=== PATIENT | female | born 1945 | race Caucasian/White ===

== ENCOUNTER 2017-11-11 12:50 | Emergency (ER) | payer OTHER ==
[2017-11-11 12:58] VITALS: BP 145/86; PULSE 86; TEMP 98.6; BMI 28.3
--- NOTE | 2017-11-11 15:08 | PDOC ---
History of Present Illness - General Chief Complaint: Rash Stated Complaint: SHINGLES / ABSCESS BOIL Time Seen by Provider: 11/11/17 14:54 History Source: Patient, Family (daughter) Exam Limitations: Language Barrier - History of Present Illness Initial Comments: 11/11/17 15:03 72 yr female history of DM, HTN, high cholesterol presents with rash to the right flank started 5 days ago. no fever. pt recently arrived yesterday from Timing/Duration: reports: constant Severity: Yes: moderate Past History - Travel Traveled outside of the country in the last 30 days: Yes - Past Medical History Allergies/Adverse Reactions: Allergies Allergy/AdvReac Type Severity Reaction Status Date / Time Penicillins Allergy Unknown Verified 11/11/17 12:52 Home Medications: Ambulatory Orders Aspirin [ASA -] 81 mg PO DAILY 11/30/12 Lisinopril/Hydrochlorothiazide [Lisinopril-Hctz 20-25 mg Tab] 1 each PO DAILY Metformin HCl [Glucophage] 1,000 mg PO BID 11/30/12 Metoprolol Tartrate [Lopressor -] 100 mg PO BID 11/30/12 Pravastatin Sodium [Pravachol -] 40 mg PO HS 11/30/12 Amlodipine Besylate [Norvasc -] 10 mg PO DAILY #0 tablet 12/04/13 Ibuprofen [Motrin -] 400 mg PO Q6H PRN #18 tablet 09/14/16 Oxycodone HCl/Acetaminophen [Percocet 5-325 mg Tablet] 1 tab PO Q6H PRN #10 tablet MDD 4 11/11/17 COPD: No Diabetes: Yes HTN: Yes Hypercholesterolemia: Yes - Immunization History Immunization Up to Date: Yes - Suicide/Smoking/Psychosocial Hx Smoking Status: No Smoking History: Never smoked Have you smoked in the past 12 months: No Number of Cigarettes Smoked Daily: 0 Information on smoking cessation initiated: No Hx Alcohol Use: No Drug/Substance Use Hx: No Substance Use Type: None Review of Systems - Review of Systems Able to Perform ROS?: Yes Is the patient limited Albanian proficient: No Constitutional: No: Symptoms Reported HEENTM: No: Symptoms Reported Respiratory: No: Symptoms reported Cardiac (ROS): No: Symptoms Reported ABD/GI: No: Symptoms Reported : No: Symptoms Reported Musculoskeletal: No: Symptoms Reported Integumentary: Yes: See HPI *Physical Exam - Vital Signs Last Vital Signs Temp Pulse Resp BP Pulse Ox 98.6 F 86 18 145/86 100 11/11/17 12:55 11/11/17 12:55 11/11/17 12:55 11/11/17 12:55 11/11/17 12:55 - Physical Exam General Appearance: Yes: Nourished, Appropriately Dressed HEENT: positive: EOMI, JANN Neck: positive: Supple Respiratory/Chest: positive: Lungs Clear, Normal Breath Sounds Cardiovascular: positive: Regular Rhythm, Regular Rate Musculoskeletal: positive: Normal Inspection Extremity: positive: Normal Capillary Refill Integumentary: positive: Rash (right flank with erythematous vesicular rash radiates to right side back ) Neurologic: positive: Fully Oriented, Alert, Normal Mood/Affect, Normal Response , Motor Strength /5 Medical Decision Making - Medical Decision Making 11/11/17 15:08 cc: rash painful for 5 days no fever no chills exam consistent with shingles rash out of antiviral timeframe of 72 hours will prescribe pain medicine discussed with daughter who agrees with the plan of care *DC/Admit/Observation/Transfer Diagnosis at time of Disposition: shingles - Discharge Dispostion Disposition: HOME Condition at time of disposition: Good - Prescriptions Prescriptions: Oxycodone HCl/Acetaminophen [Percocet 5-325 mg Tablet] 1 tab PO Q6H PRN #10 tablet MDD 4 PRN Reason: Severe Pain - Referrals Referrals: ON STAFF,NOT [Primary Care Provider] - - Patient Instructions Printed Discharge Instructions: DI for Shingles Additional Instructions: cool compresses to the rash can help with pain apply a topical oatmeal paste you can make this with [employer] products or oatmeal drying cream sold over the counter by [employer] take the percocet for SEVERE pain to sleep during the day take motrin 600mg every 6-8hrs for pain follow with your primary care doctor in 1-3 days for further evaluation - Post Discharge Activity
== END 2017-11-11 15:35 | disposition home or self-care (01) ==
LOC: JERFT 12:50
DX: B02.9 Zoster without complications (principal)
CPT/HCPCS: 99281-25

== ENCOUNTER 2018-03-06 08:57 | Emergency (ER) | payer OTHER ==
[2018-03-06 09:04] VITALS: BP 118/70; PULSE 68; TEMP 97.9; BMI 25.7
--- NOTE | 2018-03-06 09:29 | PDOC ---
History of Present Illness - General Chief Complaint: Edema Stated Complaint: FALL/ FEET PAIN Time Seen by Provider: 03/06/18 09:13 History Source: Patient Exam Limitations: No Limitations - History of Present Illness Initial Comments: 03/06/18 09:29 73y F hx of dm, htn, hl, presents with complaint of leg pain. The pt was cleaning the floor about 1.5 weeks ago, slipped on detergent she put on joann floor, twisted her L ankle and then struck her R leg on the refrigerator. The patient was ambulatory afterwards but noticed increased darkening of her R foot. The pt notes pain to the L ankle and dorsal foot and to the proximal R lower leg just proximal to the anlke. The pt denies hitting her head, cp, sob, fever/chills, cough, neck pain, back pain, abd pain, hip pain, knee pain. Pt taking tylenol with moderate releif. Past History - Past Medical History Allergies/Adverse Reactions: Allergies Allergy/AdvReac Type Severity Reaction Status Date / Time Penicillins Allergy Unknown Verified 03/06/18 08:59 Home Medications: Ambulatory Orders Aspirin [ASA -] 81 mg PO DAILY 11/30/12 Lisinopril/Hydrochlorothiazide [Lisinopril-Hctz 20-25 mg Tab] 1 each PO DAILY Metoprolol Tartrate [Lopressor -] 100 mg PO BID 11/30/12 Pravastatin Sodium [Pravachol -] 40 mg PO HS 11/30/12 metFORMIN HCL [Glucophage] 1,000 mg PO BID 11/30/12 Amlodipine Besylate [Norvasc -] 10 mg PO DAILY #0 tablet 12/04/13 Ibuprofen [Motrin -] 400 mg PO Q6H PRN #18 tablet 09/14/16 Oxycodone HCl/Acetaminophen [Percocet 5-325 mg Tablet] 1 tab PO Q6H PRN #10 tablet MDD 4 11/11/17 COPD: No Diabetes: Yes HTN: Yes Hypercholesterolemia: Yes - Immunization History Immunization Up to Date: Yes - Suicide/Smoking/Psychosocial Hx Smoking Status: No Smoking History: Never smoked Have you smoked in the past 12 months: No Number of Cigarettes Smoked Daily: 0 Hx Alcohol Use: No Drug/Substance Use Hx: No Substance Use Type: None Review of Systems - Review of Systems Able to Perform ROS?: Yes Comments:: 03/06/18 09:39 Constitutional - no reported Fever, Chills, HEENT: no reported vision changes, sore throat Respiratory: no reported cough, sob, hemoptysis Cardiac: no reported chest pain, palpitations, light headedness Abd/GI: no reported abd pain, nausea, vomiting, diarrhea : no reported dysuria, frequency, discharge Musculskelatal - +leg pain, leg swelling no reported back pain, joint swelling skin - no reported bruising, erythema, rash neurological: no reported headache, numbness, focal weakness, tingling, ataxia, hematologic: no reported easy bruising, easy bleeding *Physical Exam - Vital Signs Last Vital Signs Temp Pulse Resp BP Pulse Ox 97.9 F 68 19 118/70 98 03/06/18 08:59 03/06/18 08:59 03/06/18 08:59 03/06/18 08:59 03/06/18 08:59 - Physical Exam Comments: 03/06/18 09:40 GENERAL: The patient is awake, alert, and fully oriented, Nontoxic - in no acute distress. HEAD: Normocephalic, atraumatic. EYES: extraocular movements intact, sclera anicteric, conjunctiva clear. ENT: Normal voice, Moist mucous membranes. NECK: Normal range of motion, supple LUNGS: Breath sounds equal, clear to auscultation bilaterally. No wheezes, no rhonchi, no rales. HEART: Regular rate and rhythm, normal S1 and S2 without murmur, rub or gallop. ABDOMEN: Soft, nontender, normoactive bowel sounds. No guarding, no rebound. . No CVA tenderness EXTREMITIES: Normal ROM of arms/legs at each joint - RLE:mild edema/induration w /o warmth of the distal anterior llower leg, no fcalf tenderness neg homans sign , +ecchymosis w/o tenderness on the medial aspect of foot, L ankle: mild tenderness and edema on lateral malleolos and dorsum of the foot NEUROLOGICAL: No facial assymetry, Normal speech, PSYCH: Normal mood, normal affect. SKIN: Warm, Dry, normal turgor, ED Treatment Course - RADIOLOGY Radiology Studies Ordered: Category Date Time Status ANKLE & FOOT-LEFT* [RAD] Stat Radiology 05/24/18 09:24 Ordered LEG TIB/FIB-LEFT [RAD] Stat Radiology 03/06/18 09:24 Ordered Medical Decision Making - Medical Decision Making 03/06/18 09:41 suspect L ankle sprain, unlikely fx as pt ahs leandra ambulating around the past week, but will get an xray as pt is still sypmtomatic R leg edema/ecchymosis, suspect resolving hematoma on R foot that drained into her R foot pt took motrin this morning,d eclines for now PMD: dr. Gould 03/06/18 11:03 xray negative for fracture will dc pt with supportive care I discussed the physical exam findings, ancillary test results and final diagnoses with the patient. I answered all of the patient's questions. The patient was satisfied with the care received and felt comfortable with the discharge plan and treatment plan. The patient will call their primary care physician within 24 hours to arrange follow-up and will return to the Emergency Department with any new, persistent or worsening symptoms. *DC/Admit/Observation/Transfer Diagnosis at time of Disposition: Ankle sprain Qualifiers: Encounter type: initial encounter Involved ligament of ankle: unspecified ligament Laterality: left Qualified Code(s): S93.402A - Sprain of unspecified ligament of left ankle, initial encounter Hematoma of leg Qualifiers: Encounter type: initial encounter Laterality: right Qualified Code(s): S80.11XA - Contusion of right lower leg, initial encounter - Discharge Dispostion Disposition: HOME Condition at time of disposition: Stable Decision to Admit order: No - Referrals Referrals: Vijay Gould [Other] - Patient Instructions Printed Discharge Instructions: DI for Ankle Sprain Additional Instructions: Return to the emergency department immediately with ANY new, persistent or worsening symptoms including any worsening pain. Take tylenol as needed for any pain. Keep your leg elevated to minimze the swelling. You MUST call and follow up with your doctor tomorrow for further evaluation of your symptoms. Results were discussed with you. Please make sure your doctor reviews the results of your emergency evaluation. If you had any xrays during your visit, it was read preliminarily by myself, a Radiologist will review it and if there are any additional findings we will call you. - Post Discharge Activity
== END 2018-03-06 11:10 | disposition home or self-care (01) ==
LOC: JER 08:57
DX: S93.402A Sprain of unspecified ligament of left ankle, initial encounter (principal); S80.11XA Contusion of right lower leg, initial encounter; W01.0XXA Fall on same level from slipping, tripping and stumbling without subsequent striking against object, initial encounter; Y93.E5 Activity, floor mopping and cleaning; Y92.038 Other place in apartment as the place of occurrence of the external cause; Y99.8 Other external cause status; I10 Essential (primary) hypertension; E78.00 Pure hypercholesterolemia, unspecified; E11.9 Type 2 diabetes mellitus without complications; Z79.84 Long term (current) use of oral hypoglycemic drugs
CPT/HCPCS: 73590-TC-RT-FY; 73610-TC-LT-FY; 73630-TC-LT; 99284-25

== ENCOUNTER 2018-05-12 11:40 | Emergency (ER) | payer OTHER ==
[2018-05-12 12:09] VITALS: BMI 26.9
--- NOTE | 2018-05-12 13:41 | PDOC ---
History of Present Illness - General Chief Complaint: Injury Stated Complaint: FALL, INJURY - History of Present Illness Initial Comments: The patient is a 73F with a history of HTN and T2DM who presents for left eye and forehead swelling and bruising s/p fall from bed on Saturday at approximately 0100 while sleeping. She noted some swelling an pain Saturday but noticed bruising today so her daughter brought her for evaluation. She denies any associated symptoms or complaints since the fall including dizziness, vision change, chest pain, SOB, abdominal pain, or other areas of injury/ bruising. The daughter reports that she has noticed that since the fall the patient has been more quiet but otherwise is as her baseline for mentation and function. The daughter also reports that he patient has been having some forgetfullness over the last months-year but is able to perform her ADLs with minimal assistance. The patient lives with her daughter who helps her manage her medications and both deny any recent change or missed dosages. The patient reports feeling safe at home with her daughter when asked using the parts interpreter while the daughter was not present. 05/12/18 14:14 Past History - Past Medical History Allergies/Adverse Reactions: Allergies Allergy/AdvReac Type Severity Reaction Status Date / Time Penicillins Allergy Unknown Verified 03/06/18 08:59 Home Medications: Ambulatory Orders Aspirin [ASA -] 81 mg PO DAILY 11/30/12 Lisinopril/Hydrochlorothiazide [Lisinopril-Hctz 20-25 mg Tab] 1 each PO DAILY Metoprolol Tartrate [Lopressor -] 100 mg PO BID 11/30/12 Pravastatin Sodium [Pravachol -] 40 mg PO HS 11/30/12 metFORMIN HCL [Glucophage] 1,000 mg PO BID 11/30/12 Amlodipine Besylate [Norvasc -] 10 mg PO DAILY #0 tablet 12/04/13 Ibuprofen [Motrin -] 400 mg PO Q6H PRN #18 tablet 09/14/16 Oxycodone HCl/Acetaminophen [Percocet 5-325 mg Tablet] 1 tab PO Q6H PRN #10 tablet MDD 4 11/11/17 Acetaminophen [Tylenol] 975 mg PO QID PRN 10 Days #120 tablet 05/12/18 Cancer: No Cardiac Disorders: No CVA: No COPD: No DVT: No Diabetes: Yes (NIDDM) HTN: Yes Hypercholesterolemia: Yes Other medical history: Glaucoma - Immunization History Immunization Up to Date: Yes - Suicide/Smoking/Psychosocial Hx Smoking Status: No Smoking History: Never smoked Have you smoked in the past 12 months: No Number of Cigarettes Smoked Daily: 0 Hx Alcohol Use: No Drug/Substance Use Hx: No Substance Use Type: None Review of Systems - Review of Systems Comments:: GENERAL/CONSTITUTIONAL: No fever or chills. No weakness._ HEAD, EYES, EARS, NOSE AND THROAT: No change in vision. No ear pain or discharge. No sore throat._ CARDIOVASCULAR: No chest pain or shortness of breath_ RESPIRATORY: No cough, wheezing, or hemoptysis._ GASTROINTESTINAL: No nausea, vomiting, diarrhea or constipation._ GENITOURINARY: No dysuria, frequency, or change in urination._ MUSCULOSKELETAL: No joint or muscle swelling or pain. No neck or back pain._ SKIN: No rash_ NEUROLOGIC: No headache, vertigo, loss of consciousness, or change in strength/ sensation._ ENDOCRINE: No increased thirst. No abnormal weight change_ HEMATOLOGIC/LYMPHATIC: No anemia, easy bleeding, or history of blood clots._ ALLERGIC/IMMUNOLOGIC: No hives or skin allergy._ 05/12/18 16:46 *Physical Exam - Vital Signs Last Vital Signs Temp Pulse Resp BP Pulse Ox 98 F 75 20 125/77 97 05/12/18 12:02 05/12/18 12:02 05/12/18 12:02 05/12/18 12:05/12/18 12:02 - Physical Exam Comments: GENERAL: Awake, alert, and fully oriented, in no acute distress HEAD: 2cm hematoma over L forehead; Left periorbital ecchymosis and swelling; no Nolan sign, no SQ crepitus EYES: PERRLA, EOMI and painless, sclera anicteric, conjunctiva clear, arcus ENT:Hearing grossly normal, nares patent, oropharynx clear without exudates. Moist mucosa NECK: Normal ROM, supple, no lymphadenopathy, no MSK TTP or midline TTP LUNGS: No distress, speaks full sentences, clear to auscultation bilaterally HEART: Regular rate and rhythm, normal S1 and S2, no murmurs appreciated, peripheral pulses normal and equal bilaterally ABDOMEN: Soft, nontender, non-distended, normoactive bowel sounds. No guarding , no rebound EXTREMITIES : 1cm bruise over left medial elbow with minimal TTP, no joint laxity or SQ crepitus, Normal range of motion, no edema. No clubbing or cyanosis NEUROLOGICAL: Cranial nerves II through XII grossly intact. Normal speech, normal gait, no focal sensorimotor deficits SKIN: Eccymosis over L forehead and L periorbital area as above, otherwise warm , Dry, normal turgor 05/12/18 14:54 ED Treatment Course - LABORATORY CBC & Chemistry Diagram: 05/12/18 14:27 05/12/18 14:27 Medical Decision Making - Medical Decision Making The patient is a 73F with a history of HTN and T2DM who presents for left eye and forehead swelling and bruising s/p fall from bed on Saturday at approximately 0100 while sleeping. Ddx: ED course: CMP, CBC, UA, ECG, CT Head and face w/o 05/12/18 15:13 CBC, UA without evidence of infection CT Head/Face negative for acute bleed or fracture Patient denies pain at this time and is ambulating well, VSS Dispo: Home with daughter and PCP f/u in 1-3 days The patient understands and agrees with the plan of care as outlined above and that questions have been answered to his apparent satisfaction. The patient was instructed to follow up with their primary care physician, was given return precautions, and voiced understanding. 05/12/18 16:35 *DC/Admit/Observation/Transfer Diagnosis at time of Disposition: Fall from bed, initial encounter - Discharge Dispostion Disposition: HOME Condition at time of disposition: Stable Decision to Admit order: No - Prescriptions Prescriptions: Acetaminophen [Tylenol] 975 mg PO QID PRN 10 Days #120 tablet PRN Reason: Pain - Referrals Referrals: Brennan Gould [Other] - Patient Instructions Printed Discharge Instructions: How to Prevent Falls Additional Instructions: You were seen today in the Emergency Department for left eye/forehead swelling and bruising after falling out of bed. You were evaluated and found not to have any acute head bleed or fracture. You were prescribed Tylenol for pain, please take as directed. Also, refer to the handouts provided at discharge about how to decrease the risk of falls in the future. Follow up with your primary care provider within the next 1-3 days. Return to the Emergency Department if you begin to experience headaches, nausea/vomiting, lethargy, vision changes, fevers , any worsening symptoms, or any new concerning symptoms. Hoy se lo sood visto en el Departamento de Emergencia por rekha y jerrod en el ovidio yusuf / la frente despus de haberse cado de la cama. Usted fue evaluado y se descubri que no elizabeth ningn sangrado o fractura aguda en la jesus alberto. Le recetaron Tylenol para el dolor, por favor tome segn las indicaciones. Adems, consulte los folletos proporcionados al momento del tad sobre student counsellor reducir el riesgo de cadas en el futuro. Bennie un seguimiento con peralta proveedor de atencin primaria dentro de los prximos 1-3 barton. Regrese al Departamento de Emergencia si comienza a experimentar yobany de jesus alberto, nuseas / vmitos, letargo, cambios en la visin, fiebre, cualquier empeoramiento de los sntomas o cualquier nuevo sntoma preocupante. Print Language: YAKUT - Post Discharge Activity
--- NOTE | 2018-05-12 14:34 | PDOC ---
Attending Attestation - Resident Resident Name: Dixon Esqueda - ED Attending Attestation I have performed the following: I have examined & evaluated the patient, The case was reviewed & discussed with the resident, I agree w/resident's findings & plan, Exceptions are as noted - HPI HPI: 05/12/18 14:34 73y F hx of htn, dm, fell out of bed while sleeping on saturday and rolled out of bed. Hda some swelling of her forehead immediately afterwards, but this morning noticed some bruising around some came to the ED for evaluation. Pt denies any headache, n/v, viiso changes, numbness/tingling/weakness, neck pain, back pain, chest pain, abd pain, not on a/c Lives with daugther. On exam the pt has a small ecchymotic hematoma on the L forehead that is mildly tender no crepitus noted or stepoffis no tenderness in the periorbital area no focal bony tenderness elswhere on the neck/back normal ROM of all extremitieis will obtain CT head/facial bones to ro fx suspect the ecchymosis is likely due to her hematoma - Medical Decision Making 05/12/18 16:[address] negativ will dc with pmd fu return precautions were dsicussed
[2018-05-12 14:39] LABS: HEMATOCRIT 40.6 % (32.4-45.2); HEMOGLOBIN 13.8 GM/dL (10.7-15.3); MCH 31.4 pg (25.7-33.7); MEAN CELL VOLUME 92.3 fl (80-96); MEAN PLT VOLUME 9.9 fl (7.5-11.1); PLATELET COUNT 232 K/MM3 (134-434); RDW 12.6 % (11.6-15.6); WHITE BLOOD COUNT 11.9 K/mm3 (4.0-10.0)
[2018-05-12 14:46] LABS: URINE APPEARANCE CLEAR; URINE BILIRUBIN NEGATIVE (<2.0 mg/dL); URINE COLOR LTYELLOW; URINE GLUCOSE (UA) NEGATIVE (NEGATIVE); URINE KETONE NEGATIVE (NEGATIVE); URINE LEUK ESTERASE TRACE (NEGATIVE); URINE NITRITE NEGATIVE (NEGATIVE); URINE PROTEIN NEGATIVE (NEGATIVE); URINE UROBILINOGEN NEGATIVE mg/dL (0.2-1.0)
[2018-05-12 14:52] LABS: CALCIUM 9.8 mg/dL (8.5-10.1); CHLORIDE 105 mmol/L (98-107); SODIUM 143 mmol/L (136-145)
[2018-05-12 14:52] LABS: EPI CELLS RARE /HPF (FEW)
[2018-05-12 14:53] LABS: POTASSIUM 4.5 mmol/L (3.5-5.1)
[2018-05-12 14:56] LABS: ANION GAP 7 (8-16); BLOOD UREA NITROGEN 19 mg/dL (7-18); CO2 31 mmol/L (21-32); CREATININE 0.9 mg/dL (0.55-1.02); GLUCOSE,RANDOM 77 mg/dL (74-106)
[2018-05-12 17:16] VITALS: BP 112/72; PULSE 80; TEMP 98.1
--- NOTE | 2018-05-13 17:04 | EKG ---
Test Reason : Blood Pressure : / mmHG Vent. Rate : 069 BPM Atrial Rate : 069 BPM P-R Int : 156 ms QRS Dur : 076 ms QT Int : 394 ms P-R-T Axes : 006 001 015 degrees QTc Int : 422 ms NORMAL SINUS RHYTHM NONSPECIFIC T WAVE ABNORMALITY NORMAL ECG Confirmed by MD JILLIAN, CLOVER ([id number]) on 05/13/2018 5:03:43 PM Referred By: Confirmed By:CLOVER WALSH MD
== END 2018-05-12 17:20 | disposition home or self-care (01) ==
LOC: JER 11:40
DX: S00.83XA Contusion of other part of head, initial encounter (principal); S05.12XA Contusion of eyeball and orbital tissues, left eye, initial encounter; W06.XXXA Fall from bed, initial encounter; Y93.89 Activity, other specified; Y92.032 Bedroom in apartment as the place of occurrence of the external cause; Y99.8 Other external cause status; I10 Essential (primary) hypertension; E11.9 Type 2 diabetes mellitus without complications; Z79.84 Long term (current) use of oral hypoglycemic drugs; E78.00 Pure hypercholesterolemia, unspecified
CPT/HCPCS: 36415; 70450-TC; 70486-TC; 80048; 81003; 81015; 85027; 93005; 93010; 99282-25

== ENCOUNTER 2018-06-19 17:49 | Inpatient (IN) | payer OTHER ==
--- NOTE | 2018-06-19 18:00 | PDOC ---
Rapid Medical Evaluation Time Seen by Provider: 06/19/18 17:55 Medical Evaluation: Allergies Allergy/AdvReac Type Severity Reaction Status Date / Time Penicillins Allergy Unknown Verified 06/19/18 17:53 06/19/18 17:55 I have performed a brief in-person evaluation of this patient. The patient presents with a chief complaint of: change in mentation and gait. A per daughter, patient is noted dragging right leg, complaining of left sided headache and nonsense speech at times since yesterday Pertinent physical exam findings are: NAd even and unlabored breathing no drooping of face, moving all limbs I have ordered the following: cmp, cbc, pt ptt, iv access, ekg, head ct The patient will proceed o the Ed for further evaluation.
[2018-06-19 19:49] LABS: URINE APPEARANCE CLEAR; URINE BILIRUBIN NEGATIVE (<2.0 mg/dL); URINE COLOR STRAW; URINE GLUCOSE (UA) NEGATIVE (NEGATIVE); URINE KETONE NEGATIVE (NEGATIVE); URINE NITRITE NEGATIVE (NEGATIVE); URINE PROTEIN NEGATIVE (NEGATIVE); URINE UROBILINOGEN NEGATIVE mg/dL (0.2-1.0)
[2018-06-19 19:50] LABS: BASO % 0.5 % (0-2.0); HEMATOCRIT 40.6 % (32.4-45.2); HEMOGLOBIN 13.7 GM/dL (10.7-15.3); LYMPH % 24.6 % (8-40); MCH 31.1 pg (25.7-33.7); MCHC 33.7 g/dl (32.0-36.0); MEAN CELL VOLUME 92.3 fl (80-96); MEAN PLT VOLUME 9.3 fl (7.5-11.1); MONO % 8.8 % (3.8-10.2); NEUT % 64.1 % (42.8-82.8); PLATELET COUNT 287 K/MM3 (134-434); RDW 12.9 % (11.6-15.6); WHITE BLOOD COUNT 11.4 K/mm3 (4.0-10.0)
[2018-06-19 19:56] LABS: URINE LEUK ESTERASE 1+ (NEGATIVE)
[2018-06-19 20:11] LABS: INR 0.99 (0.83-1.09); PROTHROMBIN TIME (PATIENT) 11.2 SEC (9.7-13.0)
[2018-06-19 20:14] LABS: ACTIVATED PTT 31.3 SECONDS (25.2-36.5)
[2018-06-19 20:22] LABS: ALBUMIN 3.9 g/dl (3.4-5.0); ANION GAP 13 MMOL/L (8-16); BILIRUBIN,TOTAL 0.3 mg/dL (0.2-1.0); BLOOD UREA NITROGEN 18 mg/dL (7-18); CALCIUM 9.4 mg/dL (8.5-10.1); CHLORIDE 104 mmol/L (98-107); CO2 24 mmol/L (21-32); GLUCOSE,RANDOM 116 mg/dL (74-106); POTASSIUM 4.1 mmol/L (3.5-5.1); SGOT/AST 40 U/L (15-37); SGPT/ALT 28 U/L (12-78); SODIUM 141 mmol/L (136-145); TOT PROT 7.8 g/dl (6.4-8.2)
[2018-06-19 20:24] LABS: ALK PHOS 61 U/L (45-117)
[2018-06-19 20:40] LABS: EPI CELLS RARE /HPF (FEW); URINE MUCUS RARE
--- NOTE | 2018-06-19 20:55 | PDOC ---
History of Present Illness - General Chief Complaint: Altered Mental Status Stated Complaint: EVALUATION Time Seen by Provider: 06/19/18 17:55 History Source: Family (daughter) Exam Limitations: Language Barrier - History of Present Illness Initial Comments: 06/19/18 20:50 Pt is Maltese speaking only. Daughter translated. Pt is a 73yo f with PMH of DM, HTN brought to ED by daughter for slurring of speech, gait abnormalities and going off topic. Daughter picked pt up at 12: 30pm today and noticed that pt was "looking weird." Daughter's boyfriend noticed it too. According to daughter, pt was struggling to get words out and "she sounded like she had a cold on the phone yesterday". Pt lives alone and denies that anything is wrong. Pt just says she has this L sided headache that has been going on a month but it doesn't really bother her. PMH: htn, dm PSH: totaly hysterectomy, lumpectomy Meds: see med rec Allergies: pcn Social: denies PCP: Dr. Vijay Gould Past History - Past Medical History Allergies/Adverse Reactions: Allergies Allergy/AdvReac Type Severity Reaction Status Date / Time Penicillins Allergy Unknown Verified 06/19/18 17:53 Home Medications: Ambulatory Orders Aspirin [ASA -] 81 mg PO DAILY 11/30/12 Lisinopril/Hydrochlorothiazide [Lisinopril-Hctz 20-25 mg Tab] 1 each PO DAILY Metoprolol Tartrate [Lopressor -] 100 mg PO BID 11/30/12 Pravastatin Sodium [Pravachol -] 40 mg PO HS 11/30/12 metFORMIN HCL [Glucophage] 1,000 mg PO BID 11/30/12 Amlodipine Besylate [Norvasc -] 10 mg PO DAILY #0 tablet 12/04/13 Acetaminophen [Tylenol] 975 mg PO QID PRN 10 Days #120 tablet 05/12/18 Cancer: No Cardiac Disorders: No CVA: No COPD: No DVT: No Diabetes: Yes (NIDDM) HTN: Yes Hypercholesterolemia: Yes - Immunization History Immunization Up to Date: Yes - Suicide/Smoking/Psychosocial Hx Smoking Status: No Smoking History: Never smoked Have you smoked in the past 12 months: No Number of Cigarettes Smoked Daily: 0 Information on smoking cessation initiated: No Hx Alcohol Use: No Drug/Substance Use Hx: No Substance Use Type: None Review of Systems - Review of Systems Constitutional: No: Chills, Fever HEENTM: No: Recent change in vision, Double Vision, Ear Pain, Nose Congestion, Throat Pain Respiratory: No: Cough, Shortness of Breath Cardiac (ROS): No: Chest Pain, Lightheadedness, Syncope ABD/GI: No: Constipated, Diarrhea, Nausea, Vomiting, Abdominal cramping : No: Burning, Dysuria Musculoskeletal: No: Back Pain, Joint Pain, Muscle Pain, Muscle Weakness Neurological: Yes: Headache (L sided). No: Numbness, Tingling *Physical Exam - Vital Signs Last Vital Signs Temp Pulse Resp BP Pulse Ox 98 F 75 16 145/80 100 06/19/18 17:57 06/19/18 17:57 06/19/18 17:57 06/19/18 17:57 06/19/18 19:51 - Physical Exam HEENT: positive: EOMI, JANN, Pharynx Normal. negative: Pale Conjunctivae, Scleral Icterus (R), Scleral Icterus (L), Pharyngeal Erythema, Tonsillar Exudate , Nasal Congestion, Sinus Tenderness Neck: positive: Trachea midline, Supple. negative: Carotid bruit, Lymphadenopathy (R), Lymphadenopathy (L) Respiratory/Chest: positive: Lungs Clear, Normal Breath Sounds. negative: Crackles, Rales, Rhonchi, Stridor Cardiovascular: positive: Regular Rhythm, Regular Rate, S1, S2, Systolic Murmur (holosystolic). negative: Edema, JVD Vascular Pulses: Carotid (R): 2+, Carotid (L): 2+, Dorsalis-Pedis (R): 2+, Doralis-Pedis (L): 2+ Gastrointestinal/Abdominal: positive: Normal Bowel Sounds, Soft. negative: Distended, Guarding, Rebound, Tenderness Musculoskeletal: positive: Other (no pelvic/hip tenderness. Full passive ROM with hip and knee. ). negative: CVA Tenderness Extremity: positive: Normal Capillary Refill Integumentary: positive: Normal Color, Dry, Warm. 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 ). negative: Fully Oriented (oriented to self. ), Facial Droop, Numbness, Sensory Deficit, Confused Deep Tendon Reflexes: Ankle (L): 2+, Ankle (R): 2+, Knee (L): 2+, Knee (R): 2+, Bicep (L): 2+, Bicep (R): 2+ ED Treatment Course - LABORATORY CBC & Chemistry Diagram: 06/19/18 19:40 06/19/18 19:40 - ADDITIONAL ORDERS Additional order review: Laboratory Results 06/19/18 06/19/18 06/19/18 19:40 19:40 19:40 PT with INR 11.20 INR 0.99 PTT (Actin FS) 31.3 Sodium 141 Potassium 4.1 Chloride 104 Carbon Dioxide 24 Anion Gap 13 BUN 18 Creatinine 1.0 Creat Clearance w eGFR 54.05 Random Glucose 116 H Calcium 9.4 Total Bilirubin 0.3 AST 40 H ALT 28 Alkaline Phosphatase 61 Troponin I < 0.02 Total Protein 7.8 Albumin 3.9 Urine Color Straw Urine Appearance Clear Urine pH 7.0 Ur Specific [place] 1.004 Urine Protein Negative Urine Glucose (UA) Negative Urine Ketones Negative Urine Blood Negative Urine Nitrite Negative Urine Bilirubin Negative Urine Urobilinogen Negative Ur Leukocyte Esterase 1+ H 06/19/18 19:40 RBC 4.40 MCV 92.3 MCHC 33.7 RDW 12.9 MPV 9.3 Neutrophils % 64.1 Lymphocytes % 24.6 Monocytes % 8.8 Eosinophils % 2.0 Basophils % 0.5 Medical Decision Making - Medical Decision Making 06/20/18 06:47 Pt is a 73yo f with PMH of DM, HTN brought to ED by daughter for slurring of speech, gait abnormalities and going off topic. DDx: hypoglycemia, UTI, sepsis, stroke Labs, CXR and CT ordered in triage. CT showed subdural hematoma in R frontoparietal region that may have been developing since last CT on 05/12 when patient hit her head. All other labs wnl. EKG: nsr, no ALEXSANDRA or depressions. CXR: no acute pathology -Consulted Dr. Craven and will admit pt intpatient to hospitalist. Pt hemodynamically stable. 06/20/18 06:49 *DC/Admit/Observation/Transfer Diagnosis at time of Disposition: Subdural hematoma - Discharge Dispostion Condition at time of disposition: Stable Decision to Admit order: Yes - Referrals - Patient Instructions - Post Discharge Activity
--- NOTE | 2018-06-19 21:03 | PDOC ---
Attending Attestation - Resident Resident Name: Sa Nellieira - ED Attending Attestation I have performed the following: I have examined & evaluated the patient, The case was reviewed & discussed with the resident, I agree w/resident's findings & plan, Exceptions are as noted - HPI HPI: 06/19/18 21:36 73yo female with slurred speech since yesterday and off balance today when walking - leaning to the R when ambulating. Pt fell a month ago. - Physicial Exam PE: 06/19/18 21:37 Gen: aaox3, mildly slurred speech on exam per the daughter heent: PERRL, EOMI, post pharynx clear neck: supple, no midline ttp heart: +s1s2 reg lungs: cta b/l abd: soft, nt/nd +bs ext: no c/c/e neuro: cn ii-xii grossly intact, muslce strength 5/5 ue and le, ambulates with unsteady gait requiring assistance and leans to the right, slurred speech, sensation intact - Critical Care Time Total Critical Care Time: 35 Critical Care Statement: The care of this patient involved high complexity decision making to prevent further life threatening deterioration of the patient 's condition and/or to evaluate & treat vital organ system(s) failure or risk of failure. - Medical Decision Making 06/19/18 21:03 I, Dr. Cee Valero, DO, attest that this document has been prepared under my direction and personally reviewed by me in its entirety. I further attest, that it accurately reflects all work, treatment, procedures and medical decision -making performed by me. 06/19/18 21:42 a/p: 73yo female with fall 1 month ago and slurred speech since yesterday -will send for head ct -pt outside the window for TPA -slurred speech and unsteady gait on exam -will send labs, ua -will monitor and reassess 06/19/18 21:43 pt with SDH on ct case discussed with Dr. Cummins who will see the paitent in consult keep NPO for poss drainage tomorrow 06/19/18 21:43 pt also with a UTI will start abx microblog sent to [facility] 06/19/18 21:46 family updated on the results Heart Score/ECG Review - ECG Intrepretation Comment:: 06/19/18 21:47 sinus at 69, nl axis, nl interval, t wave inversions III, no acute st changes NIH Stroke Scale - Last Known Well Date/Time & Onset Date Last Known Well: 06/18/18 Time Last Known Well: 12:00 - Initial Evaluation Level of consciousness: Alert Ask patient the month and their age: Answers both correctly Ask patient to open & close eyes; make fist and let go: Obeys both correctly Best gaze (horizontal eye movement): Normal Visual field testing: No visual field loss Facial paresis (Show teeth/raise eyebrows/close eyes tight): Normal symmetrical movement Motor Function: Left Arm: Normal Motor Function: Right Arm: Normal (extends arm 90 (or 45) degrees for 10 seconds without drift Motor Function: Left Leg: Normal (extends leg 30 degrees for 5 seconds without drift) Motor Function: Right Leg: Normal (extends leg 30 degrees for 5 seconds without drift) (walks with an ataxic gait towards R side) Limb Ataxia: Present in one limb Sensory(Use pinprick test arms,legs,trunk,face/side to side): Normal Best language (Describe picture, name items, read sentences): No Aphasia Dysarthria (read several words): Mild to moderate slurring of words Extinction and Inattention: No abnormality - Total Score NIH Stroke Scale Score: 2 tPA Exclusion checklist 3-4.5h - Time Elapsed Date last known well: 06/18/18 Time last known well: 12:00 Elaspsed time: 1 Day(s) and 9 Hour(s) and 48 Minutes - Thrombolytic Therapy Candidate Is patient eligible for thrombolytic therapy: No - Ineligibility reason(s) Reasons No tPA given: Outside of window - delayed arrival, See reason(s) noted above (SDH on ct)
[2018-06-19] MEDS ORDERED: CIPROFLOXACIN 200 MG/D5W 100 ML IVPB ONE (21:37)
--- NOTE | 2018-06-19 23:21 | HP ---
CHIEF COMPLAINT: ? change in gait and speech after falling 1 month ago PCP: HISTORY OF PRESENT ILLNESS: 73 y/o female with PMH of DM, HTN, HLD was brought into the ED by her daughter after she has noticed a change in her mother's speech and gait in the past day or so. Patient had a fall at the end of April for which she sustained two hematomas around her eyes, head CT did not show any acute pathology at the time. Since then, she has been complaining of a left sided headache but has not taken anything for the headache. Patients daughter states that since the fall her mother has not been the same- she thinks her mother's speech has changed in addition to how she walks- she notices that her mother cant put all of her weight down on her left foot. At baseline, daughter states that her mother has been getting a little but more forgetful and gets slightly disoriented at times. Patient is denying any headaches- however, daughter states that mother complains daily of headaches. She denies any CP/SOB/N/V. ER course was notable for: (1) Head CT: development of an extra-fluid collection within R frontoparietal region consistent with subdural hematoma with mild degree of mass effect; no midline shift (2) WBC 11.4 (3)U/A 1 + leukocyte esterase; patient given cipro Recent Travel: none PAST MEDICAL HISTORY: see above PAST SURGICAL HISTORY: hysterectomy; lumpectomy Social History: Smoking: denies Alcohol:denies Drugs: denies Family History: Allergies Penicillins Allergy (Unknown, Verified 06/19/18 17:53) HOME MEDICATIONS: Home Medications Medication Instructions Recorded Aspirin [ASA -] 81 mg PO DAILY 11/30/12 Lisinopril/Hydrochlorothiazide 1 each PO DAILY 11/30/12 [Lisinopril-Hctz 20-25 mg Tab] Metoprolol Tartrate [Lopressor -] 100 mg PO BID 11/30/12 Pravastatin Sodium [Pravachol -] 40 mg PO HS 11/30/12 metFORMIN HCL [Glucophage] 1,000 mg PO BID 11/30/12 Amlodipine Besylate [Norvasc -] 10 mg PO DAILY #0 tablet 12/04/13 Acetaminophen [Tylenol] 975 mg PO QID PRN 10 Days #120 05/12/18 tablet REVIEW OF SYSTEMS CONSTITUTIONAL: Absent: fever, chills, diaphoresis, generalized weakness, malaise, loss of appetite, weight change HEENT: Absent: rhinorrhea, nasal congestion, throat pain, throat swelling, difficulty swallowing, mouth swelling, ear pain, eye pain, visual changes CARDIOVASCULAR: Absent: chest pain, syncope, palpitations, irregular heart rate, lightheadedness , peripheral edema RESPIRATORY: Absent: cough, shortness of breath, dyspnea with exertion, orthopnea, wheezing, stridor, hemoptysis GASTROINTESTINAL: Absent: abdominal pain, abdominal distension, nausea, vomiting, diarrhea, constipation, melena, hematochezia GENITOURINARY: Absent: dysuria, frequency, urgency, hesitancy, hematuria, flank pain, genital pain MUSCULOSKELETAL: Absent: myalgia, arthralgia, joint swelling, back pain, neck pain SKIN: Absent: rash, itching, pallor HEMATOLOGIC/IMMUNOLOGIC: Absent: easy bleeding, easy bruising, lymphadenopathy, frequent infections ENDOCRINE: Absent: unexplained weight gain, unexplained weight loss, heat intolerance, cold intolerance NEUROLOGIC: Present: headache, unsteady gait, Absent: focal weakness or paresthesias, dizziness,, seizure, mental status changes, bladder or bowel incontinence PSYCHIATRIC: Absent: anxiety, depression, suicidal or homicidal ideation, hallucinations. PHYSICAL EXAMINATION Vital Signs - 24 hr 06/19/18 06/19/18 06/19/18 17:57 19:51 20:00 Temperature 98 F Pulse Rate 75 Respiratory 16 Rate Blood Pressure 145/80 O2 Sat by Pulse 100 100 100 Oximetry (%) GENERAL: Awake, alert, and fully oriented, in no acute distress. HEAD: Normal with no signs of trauma. EYES: Pupils equal, round and reactive to light, extraocular movements intact, sclera anicteric, conjunctiva clear. No lid lag.. NECK: no JVD seen. LUNGS:CTA B/L; no rales, rhonchi, wheezing HEART: Regular rate and rhythm, normal S1 and S2 without murmur, rub or gallop. ABDOMEN: Soft, nontender, not distended, normoactive bowel sounds, no guarding, no rebound, no masses. No hepatomegaly or splenomegaly. MUSCULOSKELETAL: Normal range of motion at all joints. No bony deformities or tenderness. No CVA tenderness. EXTREMITIES: warm; well-perfused, no clubbing/cyanosis or edema NEUROLOGICAL: Cranial nerves II-XII intact. Normal speech. Normal gait. no facial droop, no sensory deficits, 5/5 strength in upper and lower extremities + deep tendon reflexes: + patellar, + biceps, + triceps, + brachioradialis PSYCHIATRIC: Cooperative. Good eye contact. Appropriate mood and affect. SKIN: Warm, dry, normal turgor, no rashes or lesions noted, normal capillary refill. Laboratory Results - last 24 hr 06/19/18 06/19/18 06/19/18 19:40 19:40 19:40 WBC 11.4 H RBC 4.40 Hgb 13.7 Hct 40.6 MCV 92.3 MCH 31.1 MCHC 33.7 RDW 12.9 Plt Count 287 D MPV 9.3 Absolute Neuts (auto) 7.3 Neutrophils % 64.1 Lymphocytes % 24.6 Monocytes % 8.8 Eosinophils % 2.0 Basophils % 0.5 Nucleated RBC % 0 PT with INR 11.20 INR 0.99 PTT (Actin FS) 31.3 Sodium Potassium Chloride Carbon Dioxide Anion Gap BUN Creatinine Creat Clearance w eGFR Random Glucose Calcium Total Bilirubin AST ALT Alkaline Phosphatase Troponin I Total Protein Albumin Urine Color Straw Urine Appearance Clear Urine pH 7.0 Ur Specific [place] 1.004 Urine Protein Negative Urine Glucose (UA) Negative Urine Ketones Negative Urine Blood Negative Urine Nitrite Negative Urine Bilirubin Negative Urine Urobilinogen Negative Ur Leukocyte Esterase 1+ H Urine WBC (Auto) 11 Urine RBC (Auto) <1 Ur Epithelial Cells Rare Urine Mucus Rare 06/19/18 19:40 WBC RBC Hgb Hct MCV MCH MCHC RDW Plt Count MPV Absolute Neuts (auto) Neutrophils % Lymphocytes % Monocytes % Eosinophils % Basophils % Nucleated RBC % PT with INR INR PTT (Actin FS) Sodium 141 Potassium 4.1 Chloride 104 Carbon Dioxide 24 Anion Gap 13 BUN 18 Creatinine 1.0 Creat Clearance w eGFR 54.05 Random Glucose 116 H Calcium 9.4 Total Bilirubin 0.3 AST 40 H ALT 28 Alkaline Phosphatase 61 Troponin I < 0.02 Total Protein 7.8 Albumin 3.9 Urine Color Urine Appearance Urine pH Ur Specific [place] Urine Protein Urine Glucose (UA) Urine Ketones Urine Blood Urine Nitrite Urine Bilirubin Urine Urobilinogen Ur Leukocyte Esterase Urine WBC (Auto) Urine RBC (Auto) Ur Epithelial Cells Urine Mucus ASSESSMENT/PLAN: 73 y/o female with PMH DM, HTN, HLD who was brought to the ED by her daughter after she was noticed to have changes in speech and gait since having a fall 1 month ago, and is now found to have subdural hematoma on CT scan. #Subdural Hematoma -neurosurgery has been consulted -patient is NPO after midnight for possible drainage procedure tomorrow with Dr. Murray -neuro checks q4H -telemetry monitoring -hold all anticoagulation and DVT prophylaxis #HTN - c/w home meds -hold ASA 81 for now #HLD -c/w pravastatin #Diabetes -start patient on ISS F/E/N not on standing fluids replete electrolytes when necessary NPO after midnight for possible procedure tomorrow dispo: monitor in telemetry Visit type - Emergency Visit Emergency Visit: Yes ED Registration Date: 06/19/18 Care time: The patient presented to the Emergency Department on the above date and was hospitalized for further evaluation of their emergent condition. - New Patient This patient is new to me today: Yes Date on this admission: 06/20/18 - Critical Care Critical Care patient: No Hospitalist Screening - Colonoscopy Questionnaire Colonoscopy Questionnaire: Colonoscopy Questionnaire - Patient: 50 - 75 years old and never had a screening colonoscopy: Unknown History of colon or rectal polyps, or CA: Unknown History of IBD, Crohn's disease or UC: Unknown History of abdominal radiation therapy as a child: Unknown - Relative: 1 with colon or rectal CA, or polyps at age 60 or younger: Unknown Colon or rectal CA diagnosed at age 45 or younger: Unknown Multiple relatives with colon or rectal CA: Unknown - Outcome: Screening Result: Negative Screen
[2018-06-20] MEDS ORDERED: BUPIVACAINE HCL/PF (5 MG/ML) 30 ML VIAL IJ ONE
--- NOTE | 2018-06-20 02:17 | PN ---
Teaching Attending Note Name of Resident: Indira Craig ATTENDING PHYSICIAN STATEMENT I saw and evaluated the patient. Chart, data, imaging reviewed. I reviewed the resident's note and discussed the case with the resident. I agree with the resident's findings and plan as documented. SUBJECTIVE: 73 y/o female with PMH of DM, HTN, HLD was brought into the ED by her daughter after she has noticed a change in her mother's speech and gait in the past day or so. Patient had a fall at the end of April, head CT did not show any acute intracranial pathology at the time. For the past several days, pt c/o of left sided headache, however here in ED she did not have any complaints. OBJECTIVE: Last Vital Signs Temp Pulse Resp BP Pulse Ox 98 F 75 16 145/80 100 06/19/18 17:57 06/19/18 17:57 06/19/18 17:57 06/19/18 17:57 06/19/18 20:00 physical exam remarkable for systolic murmur. Neuro exam wnl, CN intact. Full motor strength in all extremities Abnormal Lab Results 06/19/18 06/19/18 06/19/18 19:40 19:40 19:40 WBC 11.4 H Random Glucose 116 H AST 40 H Ur Leukocyte Esterase 1+ H Head CT reviewed- appears to be be left sided subdural hematoma, pending official read ASSESSMENT AND PLAN: 73yo woman with left sided subdural hematoma. Currently asymptomatic. Dr. Monaco of neurosurgery was consulted and recommended close observation and removal of hematoma in AM with craniotomy. -telemetry -neuro checks q4hrs -avoid ASA and other antiplatelet agents -avoid heparin -bed rest -fall precautions -official neurosurgery consult -SCDs for DVT ppx
[2018-06-20] MEDS: INSULIN SLIDING SCALE (NOVOLOG) 1 VIAL SQ SCH ×4 (07:01→21:27)
[2018-06-20 07:03] LABS: BASO % 0.4 % (0-2.0); EOS % 2.2 % (0-4.5); HEMOGLOBIN 12.7 GM/dL (10.7-15.3); LYMPH % 28.1 % (8-40); MCH 30.7 pg (25.7-33.7); MCHC 33.5 g/dl (32.0-36.0); MEAN CELL VOLUME 91.9 fl (80-96); MEAN PLT VOLUME 9.7 fl (7.5-11.1); MONO % 10.1 % (3.8-10.2); NEUT % 59.2 % (42.8-82.8); PLATELET COUNT 258 K/MM3 (134-434); RBC 4.13 M/mm3 (3.60-5.2); RDW 12.7 % (11.6-15.6); WHITE BLOOD COUNT 10.2 K/mm3 (4.0-10.0)
[2018-06-20 07:34] LABS: ALBUMIN 3.5 g/dl (3.4-5.0); ANION GAP 8 MMOL/L (8-16); BLOOD UREA NITROGEN 15 mg/dL (7-18); CALCIUM 8.7 mg/dL (8.5-10.1); CHLORIDE 102 mmol/L (98-107); CO2 29 mmol/L (21-32); GLUCOSE,RANDOM 129 mg/dL (74-106); MAGNESIUM 1.6 mg/dL (1.8-2.4); POTASSIUM 3.7 mmol/L (3.5-5.1); SODIUM 139 mmol/L (136-145)
[2018-06-20 07:38] LABS: ALK PHOS 51 U/L (45-117); BILIRUBIN,TOTAL 0.7 mg/dL (0.2-1.0); CREATININE 0.8 mg/dL (0.55-1.02); PHOSPHOROUS 3.4 mg/dL (2.5-4.9); SGOT/AST 34 U/L (15-37); SGPT/ALT 24 U/L (12-78); TOT PROT 7.2 g/dl (6.4-8.2)
--- NOTE | 2018-06-20 09:12 | EKG ---
Test Reason : Blood Pressure : / mmHG Vent. Rate : 069 BPM Atrial Rate : 069 BPM P-R Int : 162 ms QRS Dur : 070 ms QT Int : 384 ms P-R-T Axes : 008 -07 011 degrees QTc Int : 411 ms NORMAL SINUS RHYTHM WHEN COMPARED WITH ECG OF 12-MAY-2018 14:23, NO SIGNIFICANT CHANGE WAS FOUND Confirmed by JOSE BAZAN MD ([id number]) on 06/20/2018 9:12:27 AM Referred By: Confirmed By:JOSE BAZAN MD
--- NOTE | 2018-06-20 09:27 | CONSULT ---
Consult - text type - Consultation Consultation Note: NEUROSURGERY CONSULTATION Malia Aranda is a 73 year old Latin female who fell one month ago and struck the Left side of her head. She has mild persisting Left orbital echymoses. CT Head from April 2018 did not reveal any intracranial pathology consistent with trauma. The patient presented to the [facility] ER last evening with a history of progressive headaches, slurred speech and gait instability manifesting as falling and leaning to the Right. Head CT demonstrates a Left frontal subacute subdural hematoma which is at least 1.5cm in thickness. There is effacement of the sulci and mass effect on the brain. I discussed this finding with the patient and daughter in detail and we reviewed the imaging together. The risks, benefits and alternatives to Left frontal craniotomy and evacuation of the subdural hematoma were discussed in detail. The risks included, but were not limited to: , coma, paralysis, bleeding, infection, CSF leak possibly requiring additional surgery and the need to address recurrent subdural hematoma. I offered them the option of seeking another opinion or another surgeon. All questions were answered. Informed consent was obtained. The patient and daughter ask that I proceed with surgery as described.
[2018-06-20] MEDS ORDERED: HYDROCHLOROTHIAZIDE 25 MG TABLET (FP) PO SCH (10:00)
[2018-06-20] MEDS ORDERED: METOPROLOL TARTRATE 50 MG TABLET (FP) PO SCH (10:00)
[2018-06-20] MEDS ORDERED: PATIENT'S OWN MEDICATION (NON-FORMULARY) (Lisinopril/Hydrochlorothiazide [Lisinopril-Hctz PO SCH (10:00)
[2018-06-20] MEDS ORDERED: LISINOPRIL 20 MG TABLET (FP) PO SCH (10:00)
[2018-06-20] MEDS ORDERED: amLODIPine BESYLATE 10 MG TABLET (FP) PO SCH (10:00)
[2018-06-20] MEDS ORDERED: PROPOFOL 20 ML ONE (11:29)
[2018-06-20] MEDS ORDERED: LIDOCAINE HCL/PF 2% SDV 5ML VIAL ONE (11:30)
[2018-06-20] MEDS ORDERED: ROCURONIUM BROMIDE 50 MG/5 ML VIAL ONE ×2 (11:31→12:54)
[2018-06-20] MEDS ORDERED: BUPIVACAINE HCL/PF 0.5% (5MG/ML) 10 ML VIAL ONE (11:39)
[2018-06-20] MEDS ORDERED: THROMBIN (BOVINE) 20,000 UNIT VIAL TP ONE (11:39)
[2018-06-20] MEDS ORDERED: LIDOCAINE 1%/EPI 1:100000 (20 ML MULTI DOSE VIAL) ONE (11:39)
[2018-06-20] MEDS ORDERED: GENTAMICIN SO4 80 MG/2 ML VIAL ONE (11:39)
--- NOTE | 2018-06-20 11:40 | ECHO ---
Name: TONY MUJICA Exam:Adult Echocardiogram Study Date: 06/20/2018 10:56 AM Age: 73 yrs Reason For Study: [facility] [place] Height: 60 in Weight: 137 lb BSA: 1.6 m2 MMode/2D Measurements & Calculations IVSd: 0.94 cm Ao root diam: 2.6 cm LVIDd: 3.7 cm LA dimension: 2.3 cm LVIDs: 2.7 cm LVPWd: 0.88 cm EDV(Teich): 58.9 ml LAV (MOD-bp): 34.6 ml ESV(Teich): 27.1 ml Doppler Measurements & Calculations MV E max ramirez: 63.1 cm/sec MV A max ramirez: 111.1 cm/sec MV dec slope: 144.7 cm/sec2 MV E/A: 0.57 MR max ramirez: 356.7 cm/sec TR max ramirez: 220.6 cm/sec MR max P.1 mmHg TR max P.5 mmHg Med Peak E' Ramirez: 4.9 cm/sec PI Vmax: 146.6 cm/sec Med E/e': 12.9 Lat Peak E' Ramirez: 8.2 cm/sec Lat E/e': 7.7 Left Ventricle Left ventricular systolic function is normal. Ejection Fraction = 55-60%. The transmitral spectral Do ppler flow pattern is suggestive of impaired LV relaxation. Right Ventricle The right ventricle is normal in size and function. Atria The left atrium is mildly dilated. Mitral Valve The mitral valve is normal in structure and function. There is no mitral valve stenosis. There is tra ce to mild mitral regurgitation. Tricuspid Valve The tricuspid valve is not well visualized, but is grossly normal. There is mild tricuspid regurgitat ion. Right ventricular systolic pressure is normal. Aortic Valve The aortic valve is trileaflet. No hemodynamically significant valvular aortic stenosis. No aortic regurgitation is present. Pulmonic Valve The pulmonic valve is not well visualized. There is no pulmonic valvular stenosis. Trace to mild pulm onic valvular regurgitation. Great Vessels The aortic root is normal size. Pericardium/Pleura There is no pericardial effusion. Interpretation Summary Left ventricular systolic function is normal. Ejection Fraction = 55-60%. The transmitral spectral Doppler flow pattern is suggestive of impaired LV relaxation. The left atrium is mildly dilated. There is trace to mild mitral regurgitation. There is mild tricuspid regurgitation. Right ventricular systolic pressure is normal. The aortic root is normal size. There is no pericardial effusion. MD Tiburcio Trammell 06/20/2018 11:40 AM
--- NOTE | 2018-06-20 12:23 | PN ---
Teaching Attending Note Name of Resident: Prashant Arias ATTENDING PHYSICIAN STATEMENT I saw and evaluated the patient. I reviewed the resident's note and discussed the case with the resident. I agree with the resident's findings and plan as documented. SUBJECTIVE: No fever or chills, No BHANDARI , NO weakness , numbness or tingling. per daughter speech was noted to be slurred, and shuffling in her R leg. OBJECTIVE: NAD Awake, alert and cooperative. HEENT: minimal asymmetry of the nasal folds ( effacement in R sided nasal fold ) . MMM CV: RRR, 3/6 SM at base, louder in apex and with radiation to L axilla. Lungs: CTAB . Ext : no edema Neuro : EOMI, round equal pupils , reactive to light . mild effacement in R nasolabial fold , tongue at mid line. strenght 5/ 5inupper and lower extremities proximally anad distally. sensation to light touch is nL. reflexes : 2+ knee jerk b/l. 2+ R biceps. Unable to get L biceps ( pt not relaxed ) ASSESSMENT AND PLAN: 73 y/o lady with h/o HTN, DM, HLP, recent fall on 05/12 who presented with slurred speech and abnormal gait and was found to have L sided SDH. 1- L SDH : CT image reviewed. - hold asa and heparin product - for oR today . - this patient has no active ACS, arrhythmias, or signs of CHF. EKG reviewed. Echo showed mild MR. this surgery is an intermediate risk procedure. overall, this patient is at low risk for vimal-op cardiac complications for this intermediate risk procedure. no further test are needed before surgery . 2- HTn: cont home meds 3- DM: SSI 4- DVT PX : SCDs. d/w Dr. welsh
[2018-06-20] MEDS ORDERED: LIDOCAINE 1%/EPI 1:100000 (50 ML MULTI DOSE VIAL) INF ONE (12:55)
[2018-06-20] MEDS ORDERED: VANCOMYCIN 1,000 MG VIAL (RESTRICTED TO ID ONLY) ONE (12:55)
[2018-06-20] MEDS ORDERED: SODIUM CHLORIDE 0.9% P/F 10 ML VIAL IJ ONE (12:55)
[2018-06-20] MEDS ORDERED: VANCOMYCIN 1,000 MG VIAL (RESTRICTED TO ID ONLY) IVPB ONE (12:55)
[2018-06-20] MEDS ORDERED: DEXAMETHASONE SOD PHOSPHATE 4 MG/1 ML VIAL ONE (13:13)
[2018-06-20] MEDS ORDERED: ONDANSETRON 4 MG/2 ML VIAL ONE (13:13)
[2018-06-20] MEDS ORDERED: GLYCOPYRROLATE 0.2 MG/1 ML VIAL ONE (13:21)
[2018-06-20] MEDS ORDERED: NEOSTIGMINE METHYLSULFATE 0.5 MG/ML - 10 ML MDV ONE (13:21)
[2018-06-20] MEDS ORDERED: ePHEDrine SULFATE 50 MG/1 ML AMPULE ONE (13:25)
--- NOTE | 2018-06-20 14:02 | PN ---
Physical Exam: SUBJECTIVE: Patient seen and examined at bedside. Denies any complaints. Agrees to neurosurgery. OBJECTIVE: Vital Signs Period Temp Pulse Resp BP Sys/[place] Pulse Ox Last 24 Hr 97.8 F-98.3 F 66-76 14-19 123-150/66-89 95-100 GENERAL: A&Ox3, NAD, psychomotor retardation present (unknown if baseline) HEAD: scant periorbital ecchymoses EYES: PERRLA, EOMI ENT: Ears normal, nares patent, oropharynx clear without exudates, moist mucous membranes. NECK: Trachea midline, full range of motion, supple. LUNGS: Breath sounds equal, clear to auscultation bilaterally, no wheezes, no crackles, no accessory muscle use. HEART: RRR ABDOMEN: Soft, nontender, nondistended, normoactive bowel sounds, no guarding, no rebound, no hepatosplenomegaly, no masses. EXTREMITIES: 2+ pulses, warm, well-perfused, no edema. NEUROLOGICAL: CN II-XII intact b/l, 5/5 strength in proximal and distal extremities x 4, sensorium intact, FtN intact, HtS intact, 2+ biceps and patellar reflexes b/l PSYCH: Normal mood, normal affect. SKIN: Warm, dry, normal turgor, no rashes or lesions noted Laboratory Results - last 24 hr 06/19/18 06/19/18 06/19/18 19:40 19:40 19:40 WBC 11.4 H RBC 4.40 Hgb 13.7 Hct 40.6 MCV 92.3 MCH 31.1 MCHC 33.7 RDW 12.9 Plt Count 287 D MPV 9.3 Absolute Neuts (auto) 7.3 Neutrophils % 64.1 Lymphocytes % 24.6 Monocytes % 8.8 Eosinophils % 2.0 Basophils % 0.5 Nucleated RBC % 0 PT with INR 11.20 INR 0.99 PTT (Actin FS) 31.3 Sodium Potassium Chloride Carbon Dioxide Anion Gap BUN Creatinine Creat Clearance w eGFR POC Glucometer Random Glucose Calcium Phosphorus Magnesium Total Bilirubin AST ALT Alkaline Phosphatase Troponin I Total Protein Albumin Urine Color Straw Urine Appearance Clear Urine pH 7.0 Ur Specific [place] 1.004 Urine Protein Negative Urine Glucose (UA) Negative Urine Ketones Negative Urine Blood Negative Urine Nitrite Negative Urine Bilirubin Negative Urine Urobilinogen Negative Ur Leukocyte Esterase 1+ H Urine WBC (Auto) 11 Urine RBC (Auto) <1 Ur Epithelial Cells Rare Urine Mucus Rare Anti-A Titer Blood Type Antibody Screen 06/19/18 06/19/18 06/19/18 19:40 22:15 22:15 WBC RBC Hgb Hct MCV MCH MCHC RDW Plt Count MPV Absolute Neuts (auto) Neutrophils % Lymphocytes % Monocytes % Eosinophils % Basophils % Nucleated RBC % PT with INR INR PTT (Actin FS) 34.5 Sodium 141 Potassium 4.1 Chloride 104 Carbon Dioxide 24 Anion Gap 13 BUN 18 Creatinine 1.0 Creat Clearance w eGFR 54.05 POC Glucometer Random Glucose 116 H Calcium 9.4 Phosphorus Magnesium Total Bilirubin 0.3 AST 40 H ALT 28 Alkaline Phosphatase 61 Troponin I < 0.02 Total Protein 7.8 Albumin 3.9 Urine Color Urine Appearance Urine pH Ur Specific [place] Urine Protein Urine Glucose (UA) Urine Ketones Urine Blood Urine Nitrite Urine Bilirubin Urine Urobilinogen Ur Leukocyte Esterase Urine WBC (Auto) Urine RBC (Auto) Ur Epithelial Cells Urine Mucus Anti-A Titer Cancelled Blood Type Cancelled Antibody Screen Cancelled 06/19/18 06/20/18 06/20/18 23:35 06:20 06:20 WBC 10.2 H RBC 4.13 Hgb 12.7 Hct 38.0 MCV 91.9 MCH 30.7 MCHC 33.5 RDW 12.7 Plt Count 258 MPV 9.7 Absolute Neuts (auto) 6.1 Neutrophils % 59.2 Lymphocytes % 28.1 Monocytes % 10.1 Eosinophils % 2.2 Basophils % 0.4 Nucleated RBC % 0 PT with INR INR PTT (Actin FS) Sodium 139 Potassium 3.7 Chloride 102 Carbon Dioxide 29 Anion Gap 8 BUN 15 Creatinine 0.8 Creat Clearance w eGFR > 60 POC Glucometer Random Glucose 129 H Calcium 8.7 Phosphorus 3.4 Magnesium 1.6 L Total Bilirubin 0.7 AST 34 ALT 24 Alkaline Phosphatase 51 D Troponin I Total Protein 7.2 Albumin 3.5 Urine Color Urine Appearance Urine pH Ur Specific [place] Urine Protein Urine Glucose (UA) Urine Ketones Urine Blood Urine Nitrite Urine Bilirubin Urine Urobilinogen Ur Leukocyte Esterase Urine WBC (Auto) Urine RBC (Auto) Ur Epithelial Cells Urine Mucus Anti-A Titer Blood Type O POSITIVE Antibody Screen Negative 06/20/18 06/20/18 06/20/18 06:20 06:55 08:42 WBC RBC Hgb Hct MCV MCH MCHC RDW Plt Count MPV Absolute Neuts (auto) Neutrophils % Lymphocytes % Monocytes % Eosinophils % Basophils % Nucleated RBC % PT with INR INR PTT (Actin FS) Sodium Potassium Chloride Carbon Dioxide Anion Gap BUN Creatinine Creat Clearance w eGFR POC Glucometer 109.70134 147.96896 Random Glucose Calcium Phosphorus Magnesium Total Bilirubin AST ALT Alkaline Phosphatase Troponin I Total Protein Albumin Urine Color Urine Appearance Urine pH Ur Specific [place] Urine Protein Urine Glucose (UA) Urine Ketones Urine Blood Urine Nitrite Urine Bilirubin Urine Urobilinogen Ur Leukocyte Esterase Urine WBC (Auto) Urine RBC (Auto) Ur Epithelial Cells Urine Mucus Anti-A Titer Blood Type O POSITIVE Antibody Screen 06/20/18 11:43 WBC RBC Hgb Hct MCV MCH MCHC RDW Plt Count MPV Absolute Neuts (auto) Neutrophils % Lymphocytes % Monocytes % Eosinophils % Basophils % Nucleated RBC % PT with INR INR PTT (Actin FS) Sodium Potassium Chloride Carbon Dioxide Anion Gap BUN Creatinine Creat Clearance w eGFR POC Glucometer 138.36759 Random Glucose Calcium Phosphorus Magnesium Total Bilirubin AST ALT Alkaline Phosphatase Troponin I Total Protein Albumin Urine Color Urine Appearance Urine pH Ur Specific [place] Urine Protein Urine Glucose (UA) Urine Ketones Urine Blood Urine Nitrite Urine Bilirubin Urine Urobilinogen Ur Leukocyte Esterase Urine WBC (Auto) Urine RBC (Auto) Ur Epithelial Cells Urine Mucus Anti-A Titer Blood Type Antibody Screen Active Medications Generic Name Dose Route Start Last Admin Trade Name Nae PRN Reason Stop Dose Admin Amlodipine Besylate 10 mg 06/20/18 10:00 06/20/18 10:30 Norvasc - PO 10 mg DAILY PATRICA Administration Atorvastatin Calcium 10 mg 06/20/18 22:00 Lipitor - PO HS [facility] Hydrochlorothiazide 25 mg 06/20/18 10:00 06/20/18 10:30 Hctz - PO 25 mg DAILY PATRICA Administration Insulin Aspart 1 vial 06/20/18 07:00 06/20/18 11:45 Novolog Vial Sliding Scale - SQ Not Given ACHS [facility] Protocol Lisinopril 20 mg 06/20/18 10:00 06/20/18 10:31 Prinivil PO 20 mg DAILY PATRICA Administration Metoprolol Tartrate 100 mg 06/20/18 10:00 06/20/18 10:30 Lopressor - PO 100 mg BID PATRICA Administration ASSESSMENT/PLAN: 73 y/o F w/ PMHx DM, HTN, HLD admitted for subacute subdural hematoma 2/2 fall 1 month [employer] #Subdural Hematoma -L frontoparietal subdural hematoma on CT, mild mass effect, no midline shift -pre-Sx echocardiogram benign -craniotomy w/ Dr. Cummins today -post-craniotomy CT shows reduction in size of hematoma, recommends for close f/u -will follow NeuroSx reccs -received ABx in OR, single dose Vancomycin tomorrow -neuro checks q4H -telemetry monitoring -AC and DVT prophylaxis held prior to Sx #HTN -c/w home meds: Lopressor, Lisinopril, HCTZ, Norvasc -hold ASA 81 for now #HLD -on pravastatin at home -Lipitor 10 daily #DM -SSI -BGM ACHS #asymptomatic pyuria -UA: LE 1+, 11 WBC -no complaints of dysuria, hematuria -mental status changes explained by interval development of subdural hematoma -will not treat at this time #FEN -LR @ 73 -wnl -NPO #PPx -DVT -GI: none indicated #Dispo -recovery and monitoring in ICU Visit type - Emergency Visit Emergency Visit: Yes ED Registration Date: 06/19/18 Care time: The patient presented to the Emergency Department on the above date and was hospitalized for further evaluation of their emergent condition. - New Patient This patient is new to me today: Yes Date on this admission: 06/20/18 - Critical Care Critical Care patient: No
[2018-06-20] MEDS ORDERED: ONDANSETRON 4 MG/2 ML VIAL IVPUSH PRN (14:17)
--- NOTE | 2018-06-20 14:17 | OP ---
Operative Note - Note: Operative Date: 06/20/18 Pre-Operative Diagnosis: Left frontoparietal SDH Operation: Left frontoparietal craniotomy, evacuation of SDH Post-Operative Diagnosis: Same as Pre-op Surgeon: Mook Cummins Steam Fitter Supervisor Maintenance: Apollo Henning Anesthesiologist/TELEPHONE SOLICITOR: Tiburcio Saini Anesthesia: General Estimated Blood Loss (mls): 25 Fluid Volume Replaced (mls): 300 Operative Report Dictated: Yes
--- NOTE | 2018-06-20 14:18 | SURG ---
Surgery Tax Form Preparer Note Tax Form Preparer: Apollo Henning PA-C Date of Service: 06/20/18 Diagnosis: Left frontoparietal subdural hematoma Procedure: Left frontoparietal craniotomy with evacuation of subdural hematoma I was present for the entirety of the operative procedure. For further detail, please refer to operative report. Visit type - Case Type Case Type: ED Admission - Emergency Emergency Visit: Yes ED Registration Date: 06/19/18 Care time: The patient presented to the Emergency Department on the above date and was hospitalized for further evaluation of their emergent condition. - New patient This patient is new to me today: Yes Date on this admission: 06/20/18
[2018-06-20] MEDS ORDERED: LACTATED RINGERS SOLUTION 1,000 ML IV SCH (14:30)
[2018-06-20 15:08] LABS: HEMATOCRIT 37.8 % (32.4-45.2); HEMOGLOBIN 12.8 GM/dL (10.7-15.3); MCH 31.2 pg (25.7-33.7); MEAN CELL VOLUME 91.8 fl (80-96); MEAN PLT VOLUME 9.7 fl (7.5-11.1); PLATELET COUNT 268 K/MM3 (134-434); RBC 4.12 M/mm3 (3.60-5.2); WHITE BLOOD COUNT 11.9 K/mm3 (4.0-10.0)
[2018-06-20] MEDS ORDERED: ACETAMINOPHEN INJECTION 100 ML IVPB ONE (15:23)
[2018-06-20] MEDS: ACETAMINOPHEN 1000 MG/100 ML VIAL (NON FORMULARY) IVPB ONE ×2 (15:25→22:15)
[2018-06-20] MEDS ORDERED: PNEUMOC 13-VAL CONJ-DIP CRM/PF 0.5 ML DISP.SYRIN IM ONE (16:44)
--- NOTE | 2018-06-20 17:32 | PN ---
Physical Exam: SUBJECTIVE: Azeri only speaking patient seen and examined. Daughter present to interpret and translate. Pt. laying in bed with family present sitting up smiling. Pt. is hungry and is asking when she can eat. Pt. denies any CP, SOB, weakness, numbness, tingling or fever. OBJECTIVE: Vital Signs Period Temp Pulse Resp BP Sys/[place] Pulse Ox Last 24 Hr 97.8 F-98.7 F 64-76 14-19 117-150/54-89 95-100 GENERAL: The patient is awake, alert, and fully oriented, in no acute distress. HEAD: Wrapped in post-op surgical guaze. EYES: PERRL, extraocular movements intact, sclera anicteric, conjunctiva clear. No ptosis. ENT: Ears normal, nares patent, oropharynx clear without exudates, moist mucous membranes, uvula midline. NECK: Trachea midline, full range of motion. LUNGS: mildly decreased breath sounds, no wheezes, mild bibasilar crackles , no accessory muscle use. HEART: Regular rate and rhythm, S1, S2 without murmur ABDOMEN: Soft, nontender, nondistended, normoactive bowel sounds, no guarding, no rebound, no hepatosplenomegaly, no masses. EXTREMITIES: 2+ dorsal pedal pulses, warm, well-perfused, no edema, no calf tenderness, 5/5 muscle strength in all extremities. Motor and sensation grossly intact. NEUROLOGICAL: Cranial nerves II through XII grossly intact. Normal speech-per daughter, gait not observed. PSYCH: Normal mood, normal affect. SKIN: Warm, dry, normal turgor, n Laboratory Results - last 24 hr 06/19/18 06/19/18 06/19/18 19:40 19:40 19:40 WBC 11.4 H RBC 4.40 Hgb 13.7 Hct 40.6 MCV 92.3 MCH 31.1 MCHC 33.7 RDW 12.9 Plt Count 287 D MPV 9.3 Absolute Neuts (auto) 7.3 Neutrophils % 64.1 Lymphocytes % 24.6 Monocytes % 8.8 Eosinophils % 2.0 Basophils % 0.5 Nucleated RBC % 0 PT with INR 11.20 INR 0.99 PTT (Actin FS) 31.3 Sodium Potassium Chloride Carbon Dioxide Anion Gap BUN Creatinine Creat Clearance w eGFR POC Glucometer Random Glucose Calcium Phosphorus Magnesium Total Bilirubin AST ALT Alkaline Phosphatase Troponin I Total Protein Albumin Urine Color Straw Urine Appearance Clear Urine pH 7.0 Ur Specific [place] 1.004 Urine Protein Negative Urine Glucose (UA) Negative Urine Ketones Negative Urine Blood Negative Urine Nitrite Negative Urine Bilirubin Negative Urine Urobilinogen Negative Ur Leukocyte Esterase 1+ H Urine WBC (Auto) 11 Urine RBC (Auto) <1 Ur Epithelial Cells Rare Urine Mucus Rare Anti-A Titer Blood Type Antibody Screen 06/19/18 06/19/18 06/19/18 19:40 22:15 22:15 WBC RBC Hgb Hct MCV MCH MCHC RDW Plt Count MPV Absolute Neuts (auto) Neutrophils % Lymphocytes % Monocytes % Eosinophils % Basophils % Nucleated RBC % PT with INR INR PTT (Actin FS) 34.5 Sodium 141 Potassium 4.1 Chloride 104 Carbon Dioxide 24 Anion Gap 13 BUN 18 Creatinine 1.0 Creat Clearance w eGFR 54.05 POC Glucometer Random Glucose 116 H Calcium 9.4 Phosphorus Magnesium Total Bilirubin 0.3 AST 40 H ALT 28 Alkaline Phosphatase 61 Troponin I < 0.02 Total Protein 7.8 Albumin 3.9 Urine Color Urine Appearance Urine pH Ur Specific [place] Urine Protein Urine Glucose (UA) Urine Ketones Urine Blood Urine Nitrite Urine Bilirubin Urine Urobilinogen Ur Leukocyte Esterase Urine WBC (Auto) Urine RBC (Auto) Ur Epithelial Cells Urine Mucus Anti-A Titer Cancelled Blood Type Cancelled Antibody Screen Cancelled 06/19/18 06/20/18 06/20/18 23:35 06:20 06:20 WBC 10.2 H RBC 4.13 Hgb 12.7 Hct 38.0 MCV 91.9 MCH 30.7 MCHC 33.5 RDW 12.7 Plt Count 258 MPV 9.7 Absolute Neuts (auto) 6.1 Neutrophils % 59.2 Lymphocytes % 28.1 Monocytes % 10.1 Eosinophils % 2.2 Basophils % 0.4 Nucleated RBC % 0 PT with INR INR PTT (Actin FS) Sodium 139 Potassium 3.7 Chloride 102 Carbon Dioxide 29 Anion Gap 8 BUN 15 Creatinine 0.8 Creat Clearance w eGFR > 60 POC Glucometer Random Glucose 129 H Calcium 8.7 Phosphorus 3.4 Magnesium 1.6 L Total Bilirubin 0.7 AST 34 ALT 24 Alkaline Phosphatase 51 D Troponin I Total Protein 7.2 Albumin 3.5 Urine Color Urine Appearance Urine pH Ur Specific [place] Urine Protein Urine Glucose (UA) Urine Ketones Urine Blood Urine Nitrite Urine Bilirubin Urine Urobilinogen Ur Leukocyte Esterase Urine WBC (Auto) Urine RBC (Auto) Ur Epithelial Cells Urine Mucus Anti-A Titer Blood Type O POSITIVE Antibody Screen Negative 06/20/18 06/20/18 06/20/18 06:20 06:55 08:42 WBC RBC Hgb Hct MCV MCH MCHC RDW Plt Count MPV Absolute Neuts (auto) Neutrophils % Lymphocytes % Monocytes % Eosinophils % Basophils % Nucleated RBC % PT with INR INR PTT (Actin FS) Sodium Potassium Chloride Carbon Dioxide Anion Gap BUN Creatinine Creat Clearance w eGFR POC Glucometer 109.83469 147.19756 Random Glucose Calcium Phosphorus Magnesium Total Bilirubin AST ALT Alkaline Phosphatase Troponin I Total Protein Albumin Urine Color Urine Appearance Urine pH Ur Specific [place] Urine Protein Urine Glucose (UA) Urine Ketones Urine Blood Urine Nitrite Urine Bilirubin Urine Urobilinogen Ur Leukocyte Esterase Urine WBC (Auto) Urine RBC (Auto) Ur Epithelial Cells Urine Mucus Anti-A Titer Blood Type O POSITIVE Antibody Screen 06/20/18 06/20/18 06/20/18 11:43 14:45 17:02 WBC 11.9 H RBC 4.12 Hgb 12.8 Hct 37.8 MCV 91.8 MCH 31.2 MCHC 34.0 RDW 13.0 Plt Count 268 MPV 9.7 Absolute Neuts (auto) Neutrophils % Lymphocytes % Monocytes % Eosinophils % Basophils % Nucleated RBC % PT with INR INR PTT (Actin FS) Sodium Potassium Chloride Carbon Dioxide Anion Gap BUN Creatinine Creat Clearance w eGFR POC Glucometer 138.06369 179.10224 Random Glucose Calcium Phosphorus Magnesium Total Bilirubin AST ALT Alkaline Phosphatase Troponin I Total Protein Albumin Urine Color Urine Appearance Urine pH Ur Specific [place] Urine Protein Urine Glucose (UA) Urine Ketones Urine Blood Urine Nitrite Urine Bilirubin Urine Urobilinogen Ur Leukocyte Esterase Urine WBC (Auto) Urine RBC (Auto) Ur Epithelial Cells Urine Mucus Anti-A Titer Blood Type Antibody Screen Active Medications Current Medications Amlodipine Besylate (Norvasc -) 10 mg PO DAILY [facility] Atorvastatin Calcium (Lipitor -) 10 mg PO HS [facility] Chlorhexidine Gluconate (Hibiclens For Decolonization -) 1 applic TP HS [facility] Fentanyl (Sublimaze Injection -) 25 mcg IVPUSH [id number] PRN PRN Reason: PAIN-PACU ORDER X 4 DOSES ONLY Heparin Sodium (Porcine) (Heparin -) 5,000 unit SQ TID [facility] Hydrochlorothiazide (Hctz -) 25 mg PO DAILY [facility] Vancomycin HCl 1,000 mg/ (Dextrose) 250 mls @ 250 mls/hr IVPB ONCE ONE; Protocol Stop: 06/21/18 02:29 Lactated Ringer's (Lactated Ringers Solution) 1,000 mls @ 75 mls/hr IV ASDIR [facility] Last Admin: 06/20/18 16:48 Dose: Not Given Insulin Aspart (Novolog Vial Sliding Scale -) 1 vial SQ ACHS [facility]; Protocol Last Admin: 06/20/18 17:28 Dose: 2 units Lisinopril (Prinivil) 20 mg PO DAILY [facility] Metoprolol Tartrate (Lopressor -) 100 mg PO BID [facility] Mupirocin (Bactroban Ointment (For Decolonization) -) 1 applic NS BID [facility] Stop: 06/25/18 21:59 Ondansetron HCl (Zofran Injection) 4 mg IVPUSH Q6H PRN PRN Reason: NAUSEA AND/OR VOMITING ASSESSMENT/PLAN: 73 y/o F w/ PMHx DM, HTN, HLD admitted for subacute subdural hematoma 2/2 fall 1 month ago. Pt. is s/p caniotomy for subdural hematoma evacuation. POD #0. #Neurological -S/p craniotomy 2/2 subdural hematoma q4H neurovascular checks Rpt. Head CT shows decreased subdural hematoma size pressing against left temporal lobe without midline shift s/p one dose of Vancomycin c/w Fentanyl 25mcg IVP q5min for pain #Cardiovascular -HTN Echo(06/20/18): EF 55-60%, impaired LV relaxation, LA mildly dilated, mild TR, trace to mild MR, RV pressure is normal c/w HCTZ 25 mg, Lisinopril 20mg, Lopressor 100mg BID, Amlodipine 10 mg -HLD c/w Lipitor 10mg and ASA #Gastroenterology -Nausea/Vomiting c/w Ondansetron PRN #DVT. Ppx. -SCDs -Heparin SQ #F/E/N -NPO except for meds -Lactated Ringer @ 75ml/hr -Replete electrolytes as needed
--- NOTE | 2018-06-20 20:08 | CONSULT ---
Consultation: REQUESTING PROVIDER: Dr. Craven CONSULT REQUEST: We have been asked to medically evaluate this patient for Dr. Craven. HISTORY OF PRESENT ILLNESS: A 73 y.o. Maori-speaking F w/ PMHx. of HTN, DM, HLD presented to the ED by her daughter because of changes to speech and gait that has gotten progressively worse over the past month. Pt. fell 1 month ago and had a CT Head scan which was negative for acute changes. Pt. endorses having a headache on the left side of her head after the incident. Pt. denies any headache at this time. Per the Pt.'s daughter, the Pt. began to develop an abnormal gait favoring the left leg. Before the fall the Pt. was forgetful at times but had a normal gait. Pt. laying in bed with family presents to ICU sitting up smiling. Pt. is hungry and is asking when she can eat. Pt. denies any CP, SOB, numbness or tingling in the extremities, abdominal pain or any complaints. REVIEW OF SYSTEMS: CONSTITUTIONAL: Absent: fever, chills, diaphoresis, generalized weakness, malaise, loss of appetite HEENT: throat pain Absent: throat swelling, difficulty swallowing, mouth swelling, ear pain, eye pain, visual changes CARDIOVASCULAR: Absent: chest pain, syncope, palpitations, irregular heart rate, lightheadedness , peripheral edema RESPIRATORY: Absent: shortness of breath, dyspnea with exertion, wheezing, GASTROINTESTINAL: hunger Absent: abdominal pain, abdominal distension, nausea, vomiting, diarrhea, constipation, NEUROLOGIC: Absent: headache, focal weakness or paresthesias, dizziness, unsteady gait, seizure, mental status changes, bladder or bowel incontinence Physical Exam: OBJECTIVE: Vital Signs Period Temp Pulse Resp BP Sys/Redmond Pulse Ox Last 24 Hr 97.8 F-98.7 F 64-76 14-19 117-150/54-89 95-100 GENERAL: The patient is awake, alert, and fully oriented, in no acute distress. HEAD: Wrapped in post-op surgical guaze. EYES: PERRL, extraocular movements intact, sclera anicteric, conjunctiva clear. No ptosis. ENT: Ears normal, nares patent, oropharynx clear without exudates, moist mucous membranes, uvula midline. NECK: Trachea midline, full range of motion. LUNGS: mildly decreased breath sounds, no wheezes, mild bibasilar crackles , no accessory muscle use. HEART: Regular rate and rhythm, S1, S2 without murmur ABDOMEN: Soft, nontender, nondistended, normoactive bowel sounds, no guarding, no rebound, no hepatosplenomegaly, no masses. EXTREMITIES: 2+ dorsal pedal pulses, warm, well-perfused, no edema, no calf tenderness, 5/5 muscle strength in all extremities. Motor and sensation grossly intact. NEUROLOGICAL: Cranial nerves II through XII grossly intact. Normal speech-per daughter, gait not observed. PSYCH: Normal mood, normal affect. SKIN: Warm, dry, normal turgor, n Laboratory Results - last 24 hr 06/19/18 06/19/18 06/19/18 19:40 19:40 19:40 WBC 11.4 H RBC 4.40 Hgb 13.7 Hct 40.6 MCV 92.3 MCH 31.1 MCHC 33.7 RDW 12.9 Plt Count 287 D MPV 9.3 Absolute Neuts (auto) 7.3 Neutrophils % 64.1 Lymphocytes % 24.6 Monocytes % 8.8 Eosinophils % 2.0 Basophils % 0.5 Nucleated RBC % 0 PT with INR 11.20 INR 0.99 PTT (Actin FS) 31.3 Sodium Potassium Chloride Carbon Dioxide Anion Gap BUN Creatinine Creat Clearance w eGFR POC Glucometer Random Glucose Calcium Phosphorus Magnesium Total Bilirubin AST ALT Alkaline Phosphatase Troponin I Total Protein Albumin Urine Color Straw Urine Appearance Clear Urine pH 7.0 Ur Specific Mchenry 1.004 Urine Protein Negative Urine Glucose (UA) Negative Urine Ketones Negative Urine Blood Negative Urine Nitrite Negative Urine Bilirubin Negative Urine Urobilinogen Negative Ur Leukocyte Esterase 1+ H Urine WBC (Auto) 11 Urine RBC (Auto) <1 Ur Epithelial Cells Rare Urine Mucus Rare Anti-A Titer Blood Type Antibody Screen 06/19/18 06/19/18 06/19/18 19:40 22:15 22:15 WBC RBC Hgb Hct MCV MCH MCHC RDW Plt Count MPV Absolute Neuts (auto) Neutrophils % Lymphocytes % Monocytes % Eosinophils % Basophils % Nucleated RBC % PT with INR INR PTT (Actin FS) 34.5 Sodium 141 Potassium 4.1 Chloride 104 Carbon Dioxide 24 Anion Gap 13 BUN 18 Creatinine 1.0 Creat Clearance w eGFR 54.05 POC Glucometer Random Glucose 116 H Calcium 9.4 Phosphorus Magnesium Total Bilirubin 0.3 AST 40 H ALT 28 Alkaline Phosphatase 61 Troponin I < 0.02 Total Protein 7.8 Albumin 3.9 Urine Color Urine Appearance Urine pH Ur Specific Mchenry Urine Protein Urine Glucose (UA) Urine Ketones Urine Blood Urine Nitrite Urine Bilirubin Urine Urobilinogen Ur Leukocyte Esterase Urine WBC (Auto) Urine RBC (Auto) Ur Epithelial Cells Urine Mucus Anti-A Titer Cancelled Blood Type Cancelled Antibody Screen Cancelled 06/19/18 06/20/18 06/20/18 23:35 06:20 06:20 WBC 10.2 H RBC 4.13 Hgb 12.7 Hct 38.0 MCV 91.9 MCH 30.7 MCHC 33.5 RDW 12.7 Plt Count 258 MPV 9.7 Absolute Neuts (auto) 6.1 Neutrophils % 59.2 Lymphocytes % 28.1 Monocytes % 10.1 Eosinophils % 2.2 Basophils % 0.4 Nucleated RBC % 0 PT with INR INR PTT (Actin FS) Sodium 139 Potassium 3.7 Chloride 102 Carbon Dioxide 29 Anion Gap 8 BUN 15 Creatinine 0.8 Creat Clearance w eGFR > 60 POC Glucometer Random Glucose 129 H Calcium 8.7 Phosphorus 3.4 Magnesium 1.6 L Total Bilirubin 0.7 AST 34 ALT 24 Alkaline Phosphatase 51 D Troponin I Total Protein 7.2 Albumin 3.5 Urine Color Urine Appearance Urine pH Ur Specific Mchenry Urine Protein Urine Glucose (UA) Urine Ketones Urine Blood Urine Nitrite Urine Bilirubin Urine Urobilinogen Ur Leukocyte Esterase Urine WBC (Auto) Urine RBC (Auto) Ur Epithelial Cells Urine Mucus Anti-A Titer Blood Type O POSITIVE Antibody Screen Negative 06/20/18 06/20/18 06/20/18 06:20 06:55 08:42 WBC RBC Hgb Hct MCV MCH MCHC RDW Plt Count MPV Absolute Neuts (auto) Neutrophils % Lymphocytes % Monocytes % Eosinophils % Basophils % Nucleated RBC % PT with INR INR PTT (Actin FS) Sodium Potassium Chloride Carbon Dioxide Anion Gap BUN Creatinine Creat Clearance w eGFR POC Glucometer 109.62055 147.43568 Random Glucose Calcium Phosphorus Magnesium Total Bilirubin AST ALT Alkaline Phosphatase Troponin I Total Protein Albumin Urine Color Urine Appearance Urine pH Ur Specific Mchenry Urine Protein Urine Glucose (UA) Urine Ketones Urine Blood Urine Nitrite Urine Bilirubin Urine Urobilinogen Ur Leukocyte Esterase Urine WBC (Auto) Urine RBC (Auto) Ur Epithelial Cells Urine Mucus Anti-A Titer Blood Type O POSITIVE Antibody Screen 06/20/18 06/20/18 06/20/18 11:43 14:45 17:02 WBC 11.9 H RBC 4.12 Hgb 12.8 Hct 37.8 MCV 91.8 MCH 31.2 MCHC 34.0 RDW 13.0 Plt Count 268 MPV 9.7 Absolute Neuts (auto) Neutrophils % Lymphocytes % Monocytes % Eosinophils % Basophils % Nucleated RBC % PT with INR INR PTT (Actin FS) Sodium Potassium Chloride Carbon Dioxide Anion Gap BUN Creatinine Creat Clearance w eGFR POC Glucometer 138.16295 179.25757 Random Glucose Calcium Phosphorus Magnesium Total Bilirubin AST ALT Alkaline Phosphatase Troponin I Total Protein Albumin Urine Color Urine Appearance Urine pH Ur Specific Mchenry Urine Protein Urine Glucose (UA) Urine Ketones Urine Blood Urine Nitrite Urine Bilirubin Urine Urobilinogen Ur Leukocyte Esterase Urine WBC (Auto) Urine RBC (Auto) Ur Epithelial Cells Urine Mucus Anti-A Titer Blood Type Antibody Screen Active Medications Current Medications Amlodipine Besylate (Norvasc -) 10 mg PO DAILY [facility] Atorvastatin Calcium (Lipitor -) 10 mg PO HS [facility] Chlorhexidine Gluconate (Hibiclens For Decolonization -) 1 applic TP HS [facility] Fentanyl (Sublimaze Injection -) 25 mcg IVPUSH [id number] PRN PRN Reason: PAIN-PACU ORDER X 4 DOSES ONLY Heparin Sodium (Porcine) (Heparin -) 5,000 unit SQ TID [facility] Hydrochlorothiazide (Hctz -) 25 mg PO DAILY [facility] Vancomycin HCl 1,000 mg/ (Dextrose) 250 mls @ 250 mls/hr IVPB ONCE ONE; Protocol Stop: 06/21/18 02:29 Lactated Ringer's (Lactated Ringers Solution) 1,000 mls @ 75 mls/hr IV ASDIR [facility] Last Admin: 06/20/18 16:48 Dose: Not Given Insulin Aspart (Novolog Vial Sliding Scale -) 1 vial SQ [facility]; Protocol Last Admin: 06/20/18 17:28 Dose: 2 units Lisinopril (Prinivil) 20 mg PO DAILY [facility] Metoprolol Tartrate (Lopressor -) 100 mg PO BID [facility] Mupirocin (Bactroban Ointment (For Decolonization) -) 1 applic NS BID [facility] Stop: 06/25/18 21:59 Ondansetron HCl (Zofran Injection) 4 mg IVPUSH Q6H PRN PRN Reason: NAUSEA AND/OR VOMITING ASSESSMENT/PLAN: 73 y/o F w/ PMHx DM, HTN, HLD admitted for subacute subdural hematoma 2/2 fall 1 month ago. Pt. is s/p caniotomy for subdural hematoma evacuation. POD #0. #Neurological -S/p craniotomy 2/2 subdural hematoma q4H neurovascular checks Rpt. Head CT shows decreased subdural hematoma size pressing against left temporal lobe without midline shift s/p one dose of Vancomycin c/w Fentanyl 25mcg IVP q5min for pain max of 4 doses. #Cardiovascular -HTN Echo(06/20/18): EF 55-60%, impaired LV relaxation, LA mildly dilated, mild TR, trace to mild MR, RV pressure is normal c/w HCTZ 25 mg, Lisinopril 20mg, Lopressor 100mg BID, Amlodipine 10 mg -HLD c/w Lipitor 10mg and ASA #Gastroenterology -Nausea/Vomiting c/w Ondansetron PRN #DVT. Ppx. -SCDs -Heparin SQ #F/E/N -NPO except for meds -Lactated Ringer @ 75ml/hr -Replete electrolytes as needed Visit type - Emergency Visit Emergency Visit: Yes ED Registration Date: 06/19/18 Care time: The patient presented to the Emergency Department on the above date and was hospitalized for further evaluation of their emergent condition. - New Patient This patient is new to me today: Yes Date on this admission: 06/20/18 - Critical Care Critical Care patient: No
[2018-06-20] MEDS ORDERED: traMADol HCL 50 MG TABLET PO ONE (20:45)
[2018-06-20] MEDS: HEPARIN NA (PORCINE) 5,000 UNITS/ML 1ML VIAL SQ SCH (21:26)
[2018-06-20] MEDS: METOPROLOL TARTRATE 50 MG TABLET (FP) PO SCH (21:26)
[2018-06-20] MEDS: ATORVASTATIN CA 10 MG TABLET (FP) PO SCH (21:26)
[2018-06-20] MEDS: MUPIROCIN 2% TOPICAL OINTMENT FOR DECOLONIZATION NS SCH (21:26)
[2018-06-20] MEDS: CHLORHEXIDINE GLUCONATE 4% CLEANSER FOR DECOLONIZATION TP SCH (21:27)
[2018-06-20] MEDS ORDERED: ATORVASTATIN CA 10 MG TABLET (FP) PO SCH (22:00)
[2018-06-21] MEDS ORDERED: VANCOMYCIN 1,000 MG in DEXTROSE 5%-WATER - 250 ML IVPB ONE (01:30)
[2018-06-21] MEDS: HEPARIN NA (PORCINE) 5,000 UNITS/ML 1ML VIAL SQ SCH ×3 (06:12→21:08)
[2018-06-21 06:32] LABS: BASO % 0.2 % (0-2.0); HEMATOCRIT 37.9 % (32.4-45.2); HEMOGLOBIN 12.8 GM/dL (10.7-15.3); LYMPH % 8.4 % (8-40); MCH 30.7 pg (25.7-33.7); MCHC 33.8 g/dl (32.0-36.0); MEAN CELL VOLUME 90.7 fl (80-96); MEAN PLT VOLUME 9.9 fl (7.5-11.1); MONO % 5.2 % (3.8-10.2); NEUT % 86.2 % (42.8-82.8); PLATELET COUNT 274 K/MM3 (134-434); RBC 4.18 M/mm3 (3.60-5.2); RDW 12.7 % (11.6-15.6)
[2018-06-21 06:50] LABS: ANION GAP 10 MMOL/L (8-16); BLOOD UREA NITROGEN 12 mg/dL (7-18); CHLORIDE 104 mmol/L (98-107); CO2 27 mmol/L (21-32); GLUCOSE,RANDOM 222 mg/dL (74-106); POTASSIUM 3.9 mmol/L (3.5-5.1); SODIUM 141 mmol/L (136-145)
[2018-06-21 06:51] LABS: CREATININE 0.7 mg/dL (0.55-1.02)
[2018-06-21] MEDS ORDERED: PT OWN MED DRAWER 7, Y5N ONE (09:06)
[2018-06-21] MEDS: METOPROLOL TARTRATE 50 MG TABLET (FP) PO SCH ×2 (09:19→21:07)
[2018-06-21] MEDS: amLODIPine BESYLATE 10 MG TABLET (FP) PO SCH (09:19)
[2018-06-21] MEDS: HYDROCHLOROTHIAZIDE 25 MG TABLET (FP) PO SCH (09:20)
[2018-06-21] MEDS: LISINOPRIL 20 MG TABLET (FP) PO SCH (09:21)
[2018-06-21] MEDS: MUPIROCIN 2% TOPICAL OINTMENT FOR DECOLONIZATION NS SCH ×2 (09:32→21:08)
--- NOTE | 2018-06-21 09:34 | PN ---
Progress Note (short form) - Note Progress Note: Seen and examined in ICU POD 1 from Left frontoparietal subdural hematoma Patient awake, alert and cooperative. Eating breakfast No focal deficits noted BP stable (120-140's) Active Medications Acetaminophen (Tylenol -) 650 mg PO Q6H PRN PRN Reason: FEVER Amlodipine Besylate (Norvasc -) [address] [facility] Last Admin: 06/21/18 09:19 Dose: 10 mg Atorvastatin Calcium (Lipitor -) 10 mg PO [facility] Last Admin: 06/20/18 21:26 Dose: 10 mg Chlorhexidine Gluconate (Hibiclens For Decolonization -) 1 applic TP [facility] Last Admin: 06/20/18 21:27 Dose: 1 applic Fentanyl (Sublimaze Injection -) 25 mcg IVPUSH [id number] PRN PRN Reason: PAIN-PACU ORDER X 4 DOSES ONLY Heparin Sodium (Porcine) (Heparin -) 5,[address] [facility] Last Admin: 06/21/18 06:12 Dose: 5,000 unit Hydrochlorothiazide (Hctz -) [address] [facility] Last Admin: 06/21/18 09:20 Dose: 25 mg Lactated Ringer's (Lactated Ringers Solution) 1,000 mls @ 75 mls/hr IV ASDIR [facility] Last Admin: 06/20/18 16:48 Dose: Not Given Insulin Aspart (Novolog Vial Sliding Scale -) 1 vial SQ [facility]; Protocol Last Admin: 06/20/18 21:27 Dose: 2 units Lisinopril (Prinivil) [address] [facility] Last Admin: 06/21/18 09:21 Dose: 20 mg Metoprolol Tartrate (Lopressor -) [address] [facility] Last Admin: 06/21/18 09:19 Dose: 100 mg Mupirocin (Bactroban Ointment (For Decolonization) -) [address] [facility] Stop: 06/25/18 21:59 Last Admin: 06/20/18 21:26 Dose: 1 applic Ondansetron HCl (Zofran Injection) 4 mg IVPUSH Q6H PRN PRN Reason: NAUSEA AND/OR VOMITING Vital Signs Period Temp Pulse Resp BP Sys/Redmond Pulse Ox Last 24 Hr 97.8 F-98.7 F 63-77 13-18 108-140/54-84 95-100 Intake & Output 06/18/18 06/19/18 06/20/18 06/21/18 23:59 23:59 23:59 23:59 Intake Total 1425 775 Output Total 2250 400 Balance -825 375 Weight 62.142 kg 58.922 kg General: awake, alert and cooperative. Denies BHANDARI/blurry vision/nausea/weakness/ numbness HEENT: PERRL, scalp surgical incision c/d/i Pulm: CTA CV: RRR And: SNTND Ext: WWP no edema Neuro: CN grossly intact, CANNON, AOx3 CBC, BMP 06/21/18 05:30 06/21/18 05:30 All Active Problems Subdural hematoma (Acute) Ankle sprain (Acute) Fall from bed, initial encounter (Acute) Hematoma of leg (Acute) Low back pain (Acute) - Frequent neuro chests with repeat imaging per neurology - cont anti-HTN medication for SBP 120-140's - hold ASA per neurology - advanced diet as tolerated - incentive spirometry - O2 as need for Sat >90% - SCD for DVT prophylaxis - Early PT/OT Boerem ACNP Pulm/CCM CCT: 35m
--- NOTE | 2018-06-21 11:25 | PN ---
Physical Exam: SUBJECTIVE: Patient seen and examined at bedside. Having pain within tolerance at surgical site, otherwise no complaints. Passing flatus. Breathing well. OBJECTIVE: Vital Signs Period Temp Pulse Resp BP Sys/Redmond Pulse Ox Last 24 Hr 97.8 F-98.7 F 63-77 13-18 108-134/54-84 95-100 GENERAL: A&Ox3, NAD HEAD: scant periorbital ecchymoses, surgical dressing left undisturbed EYES: PERRLA, EOMI ENT: Ears normal, nares patent, oropharynx clear without exudates, moist mucous membranes. NECK: Trachea midline, full range of motion, supple. LUNGS: Breath sounds equal, clear to auscultation bilaterally, no wheezes, no crackles, no accessory muscle use. HEART: RRR ABDOMEN: Soft, nontender, nondistended, normoactive bowel sounds, no guarding, no rebound, no hepatosplenomegaly, no masses. EXTREMITIES: 2+ pulses, warm, well-perfused, no edema. NEUROLOGICAL: CN II-XII intact b/l, 5/5 strength in proximal and distal extremities x 4, sensorium intact, FtN intact, HtS intact, 2+ biceps and patellar reflexes b/l PSYCH: Normal mood, normal affect. SKIN: Warm, dry, normal turgor, no rashes or lesions noted Laboratory Results - last 24 hr 06/20/18 06/20/18 06/20/18 11:43 14:45 17:02 WBC 11.9 H RBC 4.12 Hgb 12.8 Hct 37.8 MCV 91.8 MCH 31.2 MCHC 34.0 RDW 13.0 Plt Count 268 MPV 9.7 Absolute Neuts (auto) Neutrophils % Lymphocytes % Monocytes % Eosinophils % Basophils % Nucleated RBC % Sodium Potassium Chloride Carbon Dioxide Anion Gap BUN Creatinine Creat Clearance w eGFR POC Glucometer 138.51704 179.34258 Random Glucose Calcium 06/20/18 06/21/18 06/21/18 20:50 05:30 05:30 WBC 16.0 H RBC 4.18 Hgb 12.8 Hct 37.9 MCV 90.7 MCH 30.7 MCHC 33.8 RDW 12.7 Plt Count 274 MPV 9.9 Absolute Neuts (auto) 13.8 H Neutrophils % 86.2 H D Lymphocytes % 8.4 D Monocytes % 5.2 Eosinophils % 0.0 D Basophils % 0.2 Nucleated RBC % 0 Sodium 141 Potassium 3.9 Chloride 104 Carbon Dioxide 27 Anion Gap 10 BUN 12 Creatinine 0.7 Creat Clearance w eGFR > 60 POC Glucometer 189.20855 Random Glucose 222 H Calcium 9.0 Active Medications Generic Name Dose Route Start Last Admin Trade Name Freq PRN Reason Stop Dose Admin Acetaminophen 650 mg 06/21/18 07:01 Tylenol - PO Q6H PRN FEVER Amlodipine Besylate 10 mg 06/21/18 10:00 06/21/18 09:19 Norvasc - PO 10 mg DAILY [facility] Administration Atorvastatin Calcium 10 mg 06/20/18 22:00 06/20/18 21:26 Lipitor - PO 10 mg HS [facility] Administration Chlorhexidine Gluconate 1 applic 06/20/18 22:00 06/20/18 21:27 Hibiclens For Decolonization - TP 1 applic HS [facility] Administration Fentanyl 25 mcg 06/20/18 14:17 Sublimaze Injection - IVPUSH [id number] PRN PAIN-PACU ORDER X 4 DOSES ONLY Heparin Sodium (Porcine) 5,000 unit 06/20/18 22:00 06/21/18 06:12 Heparin - SQ 5,000 unit TID [facility] Administration Hydrochlorothiazide 25 mg 06/21/18 10:00 06/21/18 09:20 Hctz - PO 25 mg DAILY [facility] Administration Lactated Ringer's 1,000 mls @ 75 mls/hr 06/20/18 14:30 06/20/18 16:48 Lactated Ringers Solution IV Not Given ASDIR [facility] Insulin Aspart 1 vial 06/20/18 16:30 06/20/18 21:27 Novolog Vial Sliding Scale - SQ 2 units ACHS [facility] Administration Protocol Lisinopril 20 mg 06/21/18 10:00 06/21/18 09:21 Prinivil PO 20 mg DAILY [facility] Administration Metoprolol Tartrate 100 mg 06/20/18 22:00 06/21/18 09:19 Lopressor - PO 100 mg BID [facility] Administration Mupirocin 1 applic 06/20/18 22:00 06/21/18 09:32 Bactroban Ointment (For Decolonization) - NS 06/25/18 21:59 1 applic BID [facility] Administration Ondansetron HCl 4 mg 06/20/18 14:17 Zofran Injection IVPUSH Q6H PRN NAUSEA AND/OR VOMITING ASSESSMENT/PLAN: 73 y/o F w/ PMHx DM, HTN, HLD admitted for subacute subdural hematoma 2/2 fall 1 month [employer] #Subdural Hematoma -POD1 s/p L frontal craniotomy w/ Dr. Cummins -post-craniotomy CT shows reduction in size of hematoma, recommends for close f/u -following NeuroSx reccs -received dexamethasone vimal-operatively, elevated WBC and glucose today -neuro checks q4H -telemetry monitoring -BP stable -continue to hold home ASA -SCDs for DVT PPx -started on diabetic diet -incentive spirometry -early PT/OT #HTN -c/w home meds: Lopressor, Lisinopril, HCTZ, Norvasc #HLD -on pravastatin at home -Lipitor 10 daily #DM -SSI -BGM ACHS #asymptomatic pyuria -UA: LE 1+, 11 WBC -no complaints of dysuria, hematuria -mental status changes explained by interval development of subdural hematoma -will not treat at this time #FEN -LR @ 73 -wnl -diabetic #PPx -DVT: SCDs -GI: none indicated #Dispo -recovery and monitoring in ICU Visit type - Emergency Visit Emergency Visit: No - New Patient This patient is new to me today: No - Critical Care Critical Care patient: Yes Total Critical Care Time (in minutes): 40 Critical Care Statement: The care of this patient involved high complexity decision making to prevent further life threatening deterioration of the patient 's condition and/or to evaluate & treat vital organ system(s) failure or risk of failure.
[2018-06-21] MEDS: INSULIN SLIDING SCALE (NOVOLOG) 1 VIAL SQ SCH ×2 (11:30→16:30)
[2018-06-21 13:02] VITALS: BMI 25.2
--- NOTE | 2018-06-21 14:05 | PN ---
Teaching Attending Note Name of Resident: Prashant Arias ATTENDING PHYSICIAN STATEMENT I saw and evaluated the patient. I reviewed the resident's note and discussed the case with the resident. I agree with the resident's findings and plan as documented. SUBJECTIVE: No fever or chills. No abd pain, minimal pain at site of the craniotomy Objectives: NAD Awake, alert and cooperative. HEENT: minimal effacement in R sided nasal fold . MMM. surgical wound and richar in frontoparietal area . No discharge form wound CV: RRR, 3/6 SM at base, louder in apex and with radiation to L axilla. Lungs: CTAB . Ext : no edema Neuro : EOMI, round equal pupils , reactive to light . mild effacement in R nasolabial fold , tongue at mid line. strenght 5/ 5 in upper and lower extremities proximally and distally. sensation to light touch is nL. Reflexes: 2+ knee jerk b/l. 2+ R biceps. 1+ left biceps ASSESSMENT AND PLAN: 73 y/o lady with h/o HTN, DM, HLP, recent fall on 05/12 who presented with slurred speech and abnormal gait and was found to have L sided SDH. 1- L SDH : s/p L frontoparietal craniotomy POd 1 - hold asa and heparin product -monitor neuro exa. - repeat CT reviewed. 2- HTN: cont home meds. dc IVF 3- DM: SSI . dc HS coverage 4- DVT PX : SCDs. start diet . dc choudhury. PT order
[2018-06-21] MEDS: ACETAMINOPHEN 325 MG TABLET (FP) PO PRN (16:33)
--- NOTE | 2018-06-21 16:55 | PN ---
Progress Note (short form) - Note Progress Note: Anesthesia post op note, POD#1 S/P craniotomy , evacuation of SDH. VSS. No apparent post anesthesia complications. Signed off.
[2018-06-21] MEDS: ATORVASTATIN CA 10 MG TABLET (FP) PO SCH (21:07)
[2018-06-21] MEDS: CHLORHEXIDINE GLUCONATE 4% CLEANSER FOR DECOLONIZATION TP SCH (21:08)
[2018-06-22] MEDS: ACETAMINOPHEN 325 MG TABLET (FP) PO PRN ×2 (05:10→15:52)
[2018-06-22] MEDS: HEPARIN NA (PORCINE) 5,000 UNITS/ML 1ML VIAL SQ SCH ×3 (05:11→21:31)
[2018-06-22 06:31] LABS: HEMATOCRIT 40.8 % (32.4-45.2); HEMOGLOBIN 13.6 GM/dL (10.7-15.3); MCH 30.6 pg (25.7-33.7); MCHC 33.4 g/dl (32.0-36.0); MEAN CELL VOLUME 91.4 fl (80-96); MEAN PLT VOLUME 10.4 fl (7.5-11.1); PLATELET COUNT 301 K/MM3 (134-434); RBC 4.47 M/mm3 (3.60-5.2); RDW 13.1 % (11.6-15.6); WHITE BLOOD COUNT 16.6 K/mm3 (4.0-10.0)
[2018-06-22 06:32] LABS: INR 1.05 (0.83-1.09); PROTHROMBIN TIME (PATIENT) 11.9 SEC (9.7-13.0)
[2018-06-22 06:44] LABS: ANION GAP 12 MMOL/L (8-16); CALCIUM 9.1 mg/dL (8.5-10.1); CHLORIDE 102 mmol/L (98-107); CO2 28 mmol/L (21-32); CREATININE 0.7 mg/dL (0.55-1.02); GLUCOSE,RANDOM 165 mg/dL (74-106); MAGNESIUM 1.8 mg/dL (1.8-2.4); PHOSPHOROUS 2.9 mg/dL (2.5-4.9); POTASSIUM 3.5 mmol/L (3.5-5.1); SODIUM 142 mmol/L (136-145)
[2018-06-22 06:45] LABS: BLOOD UREA NITROGEN 11 mg/dL (7-18)
[2018-06-22] MEDS: INSULIN SLIDING SCALE (NOVOLOG) 1 VIAL SQ SCH ×3 (06:50→16:43)
[2018-06-22] MEDS: METOPROLOL TARTRATE 50 MG TABLET (FP) PO SCH ×2 (09:00→21:31)
[2018-06-22] MEDS: LISINOPRIL 20 MG TABLET (FP) PO SCH (09:01)
[2018-06-22] MEDS: amLODIPine BESYLATE 10 MG TABLET (FP) PO SCH (09:01)
[2018-06-22] MEDS: MUPIROCIN 2% TOPICAL OINTMENT FOR DECOLONIZATION NS SCH ×2 (09:01→21:31)
[2018-06-22] MEDS: HYDROCHLOROTHIAZIDE 25 MG TABLET (FP) PO SCH (09:01)
--- NOTE | 2018-06-22 09:20 | PN ---
Progress Note (short form) - Note Progress Note: Subjective: no fever or chills. No abd pain , had little BHANDARI this am , resoplved with tylenol Objective: Vital Signs: Last Vital Signs Temp Pulse Resp BP Pulse Ox 98.2 F 60 16 133/88 95 06/22/18 02:00 06/22/18 08:00 06/22/18 09:00 06/22/18 08:00 06/22/18 09:00 Laboratory Results - last 24 hr 06/21/18 06/22/18 06/22/18 11:27 05:30 05:30 WBC 16.6 H RBC 4.47 Hgb 13.6 Hct 40.8 MCV 91.4 MCH 30.6 MCHC 33.4 RDW 13.1 Plt Count 301 MPV 10.4 PT with INR 11.90 INR 1.05 Sodium Potassium Chloride Carbon Dioxide Anion Gap BUN Creatinine Creat Clearance w eGFR POC Glucometer 128.25943 Random Glucose Calcium Phosphorus Magnesium 06/22/18 05:30 WBC RBC Hgb Hct MCV MCH MCHC RDW Plt Count MPV PT with INR INR Sodium 142 Potassium 3.5 Chloride 102 Carbon Dioxide 28 Anion Gap 12 BUN 11 Creatinine 0.7 Creat Clearance w eGFR > 60 POC Glucometer Random Glucose 165 H Calcium 9.1 Phosphorus 2.9 Magnesium 1.8 Physical Exam: NAD Awake, alert and cooperative. HEENT: minimal effacement in R sided nasal fold . MMM. surgical wound and richar in frontoparietal area . No discharge form wound CV: RRR, 3/6 SM at base, louder in apex and with radiation to L axilla. Lungs: CTAB . Ext : no edema Neuro : EOMI, round equal pupils , reactive to light . mild effacement in R nasolabial fold , tongueand uvula at mid line. strength 5/ 5 in upper and lower extremities proximally and distally. sensation to light touch is nL. Reflexes: 2+ knee jerk b/l. 1+ R biceps bilaterally ASSESSMENT AND PLAN: 73 y/o lady with h/o HTN, DM, HLP, recent fall on 05/12 who presented with slurred speech and abnormal gait and was found to have L sided SDH. 1- L SDH : s/p L frontoparietal craniotomy POd 2 - hold asa -monitor neuro exam. 2- HTN: cont home meds. 3- DM: SSI . 4- leukocytosis , likely due to stress reaction. will follow. No fever DVT PX : SCDs.and heparin sq HLOC Visit type - Emergency Visit Emergency Visit: Yes ED Registration Date: 06/19/18 Care time: The patient presented to the Emergency Department on the above date and was hospitalized for further evaluation of their emergent condition. - New Patient This patient is new to me today: No - Critical Care Critical Care patient: No
--- NOTE | 2018-06-22 09:47 | PN ---
Progress Note (short form) - Note Progress Note: Seen and examined in the ICU Awake, alert and cooperative doing well, getting OOB, tolerating diet c/o pain at surgical site Current Medications Acetaminophen (Tylenol -) 650 mg PO Q6H PRN PRN Reason: FEVER Last Admin: 06/22/18 05:10 Dose: 650 mg Amlodipine Besylate (Norvasc -) 10 mg PO DAILY [facility] Last Admin: 06/22/18 09:01 Dose: 10 mg Atorvastatin Calcium (Lipitor -) 10 mg PO HS [facility] Last Admin: 06/21/18 21:07 Dose: 10 mg Chlorhexidine Gluconate (Hibiclens For Decolonization -) 1 applic TP HS [facility] Last Admin: 06/21/18 21:08 Dose: 1 applic Heparin Sodium (Porcine) (Heparin -) 5,000 unit SQ TID [facility] Last Admin: 06/22/18 05:11 Dose: 5,000 unit Hydrochlorothiazide (Hctz -) 25 mg PO DAILY [facility] Last Admin: 06/22/18 09:01 Dose: 25 mg Insulin Aspart (Novolog Vial Sliding Scale -) 1 vial SQ [facility]IDAC [facility]; Protocol Last Admin: 06/22/18 06:50 Dose: Not Given Lisinopril (Prinivil) 20 mg PO DAILY [facility] Last Admin: 06/22/18 09:01 Dose: 20 mg Metoprolol Tartrate (Lopressor -) 100 mg PO BID [facility] Last Admin: 06/22/18 09:00 Dose: 100 mg Mupirocin (Bactroban Ointment (For Decolonization) -) 1 applic NS BID [facility] Stop: 06/25/18 21:59 Last Admin: 06/22/18 09:01 Dose: 1 applic Ondansetron HCl (Zofran Injection) 4 mg IVPUSH Q6H PRN PRN Reason: NAUSEA AND/OR VOMITING Vital Signs Period Temp Pulse Resp BP Sys/Redmond Pulse Ox Last 24 Hr 98.2 F-98.4 F 55-77 14-18 110-162/64-99 95-95 Intake & Output 06/19/18 06/20/18 06/21/18 06/22/18 23:59 23:59 23:59 23:59 Intake Total 1425 1975 525 Output Total 2250 600 Balance -825 1375 525 Weight 62.142 kg 58.922 kg 58.513 kg General: awake, alert and cooperative. Denies BHANDARI/blurry vision/nausea/weakness/ numbness HEENT: PERRL, scalp surgical incision c/d/i Pulm: CTA CV: RRR And: SNTND Ext: WWP no edema Neuro: CN grossly intact, CANNON, AOx3 CBC, BMP 06/22/18 05:30 06/22/18 05:30 All Active Problems Subdural hematoma (Acute) Ankle sprain (Acute) Fall from bed, initial encounter (Acute) Hematoma of leg (Acute) Low back pain (Acute) - Frequent neuro chests with repeat imaging per neurology - cont anti-HTN medication for SBP 120-140's - hold ASA per neurology - cont diet - incentive spirometry - O2 as need for Sat >90% - SCD for DVT prophylaxis - Early PT/OT - stable for floor bed Boerem ACNP Pulm/CCM CCT: 35m
[2018-06-22] MEDS: ATORVASTATIN CA 10 MG TABLET (FP) PO SCH (21:31)
[2018-06-22] MEDS: CHLORHEXIDINE GLUCONATE 4% CLEANSER FOR DECOLONIZATION TP SCH (21:31)
[2018-06-23] MEDS: HEPARIN NA (PORCINE) 5,000 UNITS/ML 1ML VIAL SQ SCH (06:10)
[2018-06-23] MEDS: INSULIN SLIDING SCALE (NOVOLOG) 1 VIAL SQ SCH ×3 (06:11→12:14)
[2018-06-23] MEDS ORDERED: INSULIN (NOVOLOG) ASPART 100 UNITS/ML 10ML VIAL ONE (06:36)
[2018-06-23 07:10] LABS: BASO % 0.5 % (0-2.0); EOS % 2.6 % (0-4.5); HEMATOCRIT 42.8 % (32.4-45.2); HEMOGLOBIN 14.6 GM/dL (10.7-15.3); LYMPH % 28.7 % (8-40); MEAN PLT VOLUME 9.9 fl (7.5-11.1); NEUT % 58.2 % (42.8-82.8); PLATELET COUNT 308 K/MM3 (134-434); RDW 13.1 % (11.6-15.6); WHITE BLOOD COUNT 10.4 K/mm3 (4.0-10.0)
--- NOTE | 2018-06-23 08:25 | PN ---
Progress Note (short form) - Note Progress Note: surgery POD #3 Left frontoparietal craniotomy, evacuation of SDH patient seen and examined at bedside with no complaints. States she has focal pain at incision site. Denies any H/A, Blurred vision, Fever or chills. She is tolerating her diet and denies any vomiting. Vital Signs Temp 97.8 F 06/23/18 10:36 Pulse 64 06/23/18 10:36 Resp 18 06/23/18 10:36 BP 116/74 06/23/18 10:36 Pulse Ox 98 06/23/18 08:22 Intake & Output 06/22/18 06/22/18 06/23/18 11:59 23:59 11:59 Intake Total 525 200 200 Output Total 240 Balance 525 -40 200 Intake: IV 525 Lactated Ringers Solution 525 1,000 ml @ 75 mls/hr IV ASDIR PATRICA Rx#:[id number] Oral 200 200 Output: Urine 240 Paulino 240 Other: Voiding Method Toilet Toilet # Unmeasured Voids Paulino 3 3 Void 1 3 Bowel Movement No CBC, BMP 06/23/18 05:30 06/23/18 05:30 PE: A&Ox3, NAD unlabored resp on RA scalp incision left side, richar in situ, c/d/i with no d/c, no edema or erythema PEERL, no nystagmus or lid lag, normal speech. 5/5 international marketing specialist strength B/L LE compartments, soft, supple and non-tender to palpation with +2pedal pulses. Problem List - Problems (1) S/P evacuation of subdural hematoma Assessment/Plan: POD #3 doing well. 1) plan to transfer to floor today 2) keep incision clean and dry 3) d/c planning for today vs tomorrow. Evaluation and plan discussed with Dr Cummins Code(s): Z98.890 - OTHER SPECIFIED POSTPROCEDURAL STATES; Z86.79 - PERSONAL HISTORY OF OTHER DISEASES OF THE CIRCULATORY SYSTEM
[2018-06-23 08:39] LABS: ANION GAP 11 MMOL/L (8-16); BLOOD UREA NITROGEN 15 mg/dL (7-18); CALCIUM 9.6 mg/dL (8.5-10.1); CHLORIDE 99 mmol/L (98-107); CO2 29 mmol/L (21-32); CREATININE 0.9 mg/dL (0.55-1.02); GLUCOSE,RANDOM 208 mg/dL (74-106); POTASSIUM 3.4 mmol/L (3.5-5.1); SODIUM 139 mmol/L (136-145)
[2018-06-23] MEDS ORDERED: POTASSIUM CHLORIDE TABS 10 MEQ TABLET.ER (FP) PO ONE (08:58)
[2018-06-23] MEDS: ACETAMINOPHEN 325 MG TABLET (FP) PO PRN (10:06)
[2018-06-23] MEDS: amLODIPine BESYLATE 10 MG TABLET (FP) PO SCH (10:06)
[2018-06-23] MEDS: HYDROCHLOROTHIAZIDE 25 MG TABLET (FP) PO SCH (10:07)
[2018-06-23] MEDS: METOPROLOL TARTRATE 50 MG TABLET (FP) PO SCH (10:07)
[2018-06-23] MEDS: LISINOPRIL 20 MG TABLET (FP) PO SCH (10:08)
[2018-06-23] MEDS: MUPIROCIN 2% TOPICAL OINTMENT FOR DECOLONIZATION NS SCH (10:09)
[2018-06-23 10:37] VITALS: PULSE 64; TEMP 97.8
[2018-06-23 12:53] VITALS: BP 103/76
--- NOTE | 2018-06-23 13:20 | PN ---
Teaching Attending Note Name of Resident: Prashant Arias ATTENDING PHYSICIAN STATEMENT I saw and evaluated the patient. I reviewed the resident's note and discussed the case with the resident. I agree with the resident's findings and plan as documented. SUBJECTIVE: No fever or chills . has mild BHANDARI , no visual changes . OBJECTIVE: NAD Awake, alert and cooperative. HEENT: minimal effacement in R sided nasal fold . MMM. surgical wound and richar in frontoparietal area . No discharge form wound CV: RRR, 3/6 SM at base, louder in apex and with radiation to L axilla. Lungs: CTAB . Ext : no edema Neuro : EOMI, round equal pupils , reactive to light . mild effacement in R nasolabial fold , tongueand uvula at mid line. strength 5/ 5 in upper and lower extremities proximally and distally. sensation to light touch is nL. Reflexes: 2+ knee jerk b/l. 2+ R biceps , 1+ L biceps ASSESSMENT AND PLAN: 73 y/o lady with h/o HTN, DM, HLP, recent fall on 05/12 who presented with slurred speech and abnormal gait and was found to have L sided SDH. 1- L SDH : s/p L frontoparietal craniotomy POd 3 - much better - d/w dr. Cummins. safe to resume aspirin - f/u with him in 2 weeks 2- HTN: cont home meds. 3- DM:metformin as out pt 4- leukocytosis ,resolved. No infection dc home. PT evaluated her. walker prescription . , VNS . d/w SW
--- NOTE | 2018-06-23 13:23 | PN ---
Physical Exam: SUBJECTIVE: Patient seen and examined. Pt. c/o of minimal pain at the incision site. Pt. denies any SOB, fever, chills, numbness, tingling nausea, vomiting, constipation or diarrhea. OBJECTIVE: Vital Signs Period Temp Pulse Resp BP Sys/Redmond Pulse Ox Last 24 Hr 97.8 F-98.4 F 62-84 10-18 103-156/74-94 95-98 GENERAL: The patient is awake, alert, and fully oriented, lying in bed in no acute distress. HEAD: incision site was c/d/i, no erythema EYES: sclera anicteric, conjunctiva clear. No ptosis. ENT: Ears normal, nares patent, moist mucous membranes. NECK: Trachea midline, full range of motion, supple. ROM in tact LUNGS: Breath sounds equal, clear to auscultation bilaterally, no wheezes, no crackles, no accessory muscle use. HEART: Regular rate and rhythm, S1, S2 without murmur ABDOMEN: Soft, nontender, nondistended, normoactive bowel sounds, no guarding, no rebound. EXTREMITIES: 2+ dorsal pedal pulses, warm, well-perfused, no edema, no calf tenderness 5/5 telephone advice nurse strength, 5/5 LE muscle strength. NEUROLOGICAL: Cranial nerves II through XII grossly intact. Normal speech, gait not observed, motor and sensation grossly in tact in all extremities. PSYCH: Normal mood, normal affect. SKIN: Warm, dry, normal turgor, no rashes or lesions noted Laboratory Results - last 24 hr 06/22/18 06/22/18 06/22/18 06:18 11:32 16:37 WBC RBC Hgb Hct MCV MCH MCHC RDW Plt Count MPV Absolute Neuts (auto) Neutrophils % Lymphocytes % Monocytes % Eosinophils % Basophils % Nucleated RBC % Sodium Potassium Chloride Carbon Dioxide Anion Gap BUN Creatinine Creat Clearance w eGFR POC Glucometer 158.30948 61.98007 110.12559 Random Glucose Calcium 06/23/18 06/23/18 06/23/18 05:30 05:30 06:31 WBC 10.4 H RBC 4.70 Hgb 14.6 Hct 42.8 MCV 91.0 MCH 31.0 MCHC 34.0 RDW 13.1 Plt Count 308 MPV 9.9 Absolute Neuts (auto) 6.0 Neutrophils % 58.2 D Lymphocytes % 28.7 D Monocytes % 10.0 D Eosinophils % 2.6 D Basophils % 0.5 Nucleated RBC % 1 H Sodium 139 Potassium 3.4 L Chloride 99 Carbon Dioxide 29 Anion Gap 11 BUN 15 Creatinine 0.9 Creat Clearance w eGFR > 60 POC Glucometer 201.65496 Random Glucose 208 H Calcium 9.6 06/23/18 11:55 WBC RBC Hgb Hct MCV MCH MCHC RDW Plt Count MPV Absolute Neuts (auto) Neutrophils % Lymphocytes % Monocytes % Eosinophils % Basophils % Nucleated RBC % Sodium Potassium Chloride Carbon Dioxide Anion Gap BUN Creatinine Creat Clearance w eGFR POC Glucometer [phone] Random Glucose Calcium Active Medications Current Medications Acetaminophen (Tylenol -) 650 mg PO Q6H PRN PRN Reason: FEVER Last Admin: 06/23/18 10:06 Dose: 650 mg Amlodipine Besylate (Norvasc -) 10 mg PO DAILY [facility] Last Admin: 06/23/18 10:06 Dose: 10 mg Atorvastatin Calcium (Lipitor -) 10 mg PO HS [facility] Last Admin: 06/22/18 21:31 Dose: 10 mg Chlorhexidine Gluconate (Hibiclens For Decolonization -) 1 applic TP HS [facility] Last Admin: 06/22/18 21:31 Dose: 1 applic Heparin Sodium (Porcine) (Heparin -) 5,000 unit SQ TID [facility] Last Admin: 06/23/18 06:10 Dose: 5,000 unit Hydrochlorothiazide (Hctz -) 25 mg PO DAILY [facility] Last Admin: 06/23/18 10:07 Dose: 25 mg Insulin Aspart (Novolog Vial Sliding Scale -) 1 vial SQ TIDAC [facility]; Protocol Last Admin: 06/23/18 12:14 Dose: 4 units Lisinopril (Prinivil) 20 mg PO DAILY [facility] Last Admin: 06/23/18 10:08 Dose: 20 mg Metoprolol Tartrate (Lopressor -) 100 mg PO BID [facility] Last Admin: 06/23/18 10:07 Dose: 100 mg Mupirocin (Bactroban Ointment (For Decolonization) -) 1 applic NS BID [facility] Stop: 06/25/18 21:59 Last Admin: 06/23/18 10:09 Dose: 1 applic Ondansetron HCl (Zofran Injection) 4 mg IVPUSH Q6H PRN PRN Reason: NAUSEA AND/OR VOMITING ASSESSMENT/PLAN: 73 y/o F w/ PMHx DM, HTN, HLD admitted for subacute subdural hematoma 2/2 fall 1 month ago. Pt. is s/p caniotomy for subdural hematoma evacuation. POD #3. #Neurological -S/p craniotomy 2/[address] shows decreased subdural hematoma size pressing against left temporal lobe without midline shift s/p one dose of Vancomycin c/w Fentanyl 25mcg IVP q5min for pain max of 4 doses. #Cardiovascular -HTN Echo(06/20/18): EF 55-60%, impaired LV relaxation, LA mildly dilated, mild TR, trace to mild MR, RV pressure is normal c/w HCTZ 25 mg, Lisinopril 20mg, Lopressor 100mg BID, Amlodipine 10 mg -HLD c/w Lipitor 10mg and ASA #Gastroenterology -Nausea/Vomiting resolved #DVT. Ppx. -SCDs -Heparin SQ #F/E/N -Regular diet #Dispo -Home with VNS or floor. Visit type - Emergency Visit Emergency Visit: Yes ED Registration Date: 06/19/18 Care time: The patient presented to the Emergency Department on the above date and was hospitalized for further evaluation of their emergent condition. - New Patient This patient is new to me today: No - Critical Care Critical Care patient: No - Discharge Referral Referred to [facility] Med P.C.: No
--- NOTE | 2018-06-23 16:01 | DS ---
Physical Exam: SUBJECTIVE: Patient seen and examined at bedside. Pain at surgical incision site , otherwise no complaints. OBJECTIVE: Vital Signs Period Temp Pulse Resp BP Sys/Redmond Pulse Ox Last 24 Hr 97.8 F-98.4 F 62-84 10-18 103-156/74-94 95-98 PHYSICAL EXAM GENERAL: A&Ox3, NAD HEAD: surgical wound c/d/i EYES: PERRLA, EOMI ENT: Ears normal, nares patent, oropharynx clear without exudates, moist mucous membranes. NECK: Trachea midline, full range of motion, supple. LUNGS: Breath sounds equal, clear to auscultation bilaterally, no wheezes, no crackles, no accessory muscle use. HEART: RRR, systolic murmur at base ABDOMEN: Soft, nontender, nondistended, normoactive bowel sounds, no guarding, no rebound, no hepatosplenomegaly, no masses. EXTREMITIES: 2+ pulses, warm, well-perfused, no edema. NEUROLOGICAL: CN II-XII intact b/l, 5/5 strength in proximal and distal extremities x 4, sensorium intact, FtN intact, HtS intact, 2+ biceps and patellar reflexes b/l PSYCH: Normal mood, normal affect. SKIN: Warm, dry, normal turgor, no rashes or lesions noted LABS Laboratory Results - last 24 hr 06/22/18 06/22/18 06/22/18 06:18 11:32 16:37 WBC RBC Hgb Hct MCV MCH MCHC RDW Plt Count MPV Absolute Neuts (auto) Neutrophils % Lymphocytes % Monocytes % Eosinophils % Basophils % Nucleated RBC % Sodium Potassium Chloride Carbon Dioxide Anion Gap BUN Creatinine Creat Clearance w eGFR POC Glucometer 158.72365 61.12695 110.19913 Random Glucose Calcium 06/23/18 06/23/18 06/23/18 05:30 05:30 06:31 WBC 10.4 H RBC 4.70 Hgb 14.6 Hct 42.8 MCV 91.0 MCH 31.0 MCHC 34.0 RDW 13.1 Plt Count 308 MPV 9.9 Absolute Neuts (auto) 6.0 Neutrophils % 58.2 D Lymphocytes % 28.7 D Monocytes % 10.0 D Eosinophils % 2.6 D Basophils % 0.5 Nucleated RBC % 1 H Sodium 139 Potassium 3.4 L Chloride 99 Carbon Dioxide 29 Anion Gap 11 BUN 15 Creatinine 0.9 Creat Clearance w eGFR > 60 POC Glucometer 201.02387 Random Glucose 208 H Calcium 9.6 06/23/18 11:55 WBC RBC Hgb Hct MCV MCH MCHC RDW Plt Count MPV Absolute Neuts (auto) Neutrophils % Lymphocytes % Monocytes % Eosinophils % Basophils % Nucleated RBC % Sodium Potassium Chloride Carbon Dioxide Anion Gap BUN Creatinine Creat Clearance w eGFR POC Glucometer [phone] Random Glucose Calcium MICROBIOLOGY BCx 06/19/18: [facility] IMAGING Head CT 06/19/18: "Developing subdural hematoma since 05/12/2018. No acute hemorrhage is identified within the collection. Please see above discussion." CXR 06/20/18: "No evidence of active pulmonary disease." Head CT 06/20/18: "Status post left frontoparietal craniotomy for evacuation of previously visualized left subdural collection that is now smaller in size with mixed attenuation and interval pneumocephalus. Mild mass effect on the adjacent left frontal cortex is present without definite shift of the midline structures. Continued close follow-up is recommended." HOSPITAL COURSE: Date of Admission:06/19/18 Patient is a 73 y/o F w/ PMHx DM, HTN, HLD. Brought to ED 1 month after hospitalization for fall on head for which imaging was acutely negative. Brought to ED d/t subtle changes in mentation and gait observed by daughter. CT now demonstrates subacute left fronto-parietal subdural hematoma. Home ASA held. NeuroSx consulted. Imaging as per above, head CT studies are pre- and post -craniotomy. Evaluated by Dr. Cummins and underwent craniotomy for evacuation of bleed. NeuroSx was successful, Pt convalesced for several days in ICU with close monitoring. Discharged home with resumption of home medications, outpatient followup with PCP in [address] Cummins in 2 weeks. Date of Discharge: 06/23/18 Minutes to complete discharge: 40 Discharge Summary Reason For Visit: SUBDURAL HEMATOMA Condition: Improved - Instructions Diet, Activity, Other Instructions: You were hospitalized due to bleeding inside your skull that had begun to press against your brain. You underwent surgery to evacuate the bleeding. Additionally , you were noted to have a heart murmur, but your echocardiogram showed no significant abnormality. Referrals A referral has been made to your primary doctor, Dr. Gould, for followup evaluation and attention to your blood pressure and sugar. Please keep this appointment within one week of discharge. A referral has been made to your neurosurgeon, Dr. Cummins, for two weeks following discharge. Please keep this appointment. Medications/medical recommendations Please resume taking your home medications as prescribed upon your discharge, including aspirin. Please drink plenty of fluids. If you have any new or onset weakness, change in your mental status, change in your speech, change in how you walk, change in your sensation such as numbness, tingling, or loss of feeling, any chest pain, any difficulty breathing, or any other new symptom, please return to the Emergency Department immediately. Referrals: Vijay Gould MD [Other] - 1 Week Mook Cummins MD, FAANS [Staff Physician] - 2 Weeks Disposition: VNS/HOME HEALTH CARE - Home Medications Comprehensive Discharge Medication List: Ambulatory Orders Aspirin [ASA -] 81 mg PO DAILY 11/30/12 Lisinopril/Hydrochlorothiazide [Lisinopril-Hctz 20-25 mg Tab] 1 each PO DAILY Metoprolol Tartrate [Lopressor -] 100 mg PO BID 11/30/12 Pravastatin Sodium [Pravachol -] 40 mg PO HS 11/30/12 metFORMIN HCL [Glucophage] 1,000 mg PO BID 11/30/12 Amlodipine Besylate [Norvasc -] 10 mg PO DAILY #0 tablet 12/04/13 Acetaminophen [Tylenol] 975 mg PO QID PRN 10 Days #120 tablet 05/12/18 Walker [Ultra-Light Rollator] 1 each MC DAILY #1 each 06/23/18 This patient is new to me today: No Emergency Visit: No Critical Care patient: Yes Total Critical Care Time (in minutes): 45 Critical Care Statement: The care of this patient involved high complexity decision making to prevent further life threatening deterioration of the patient 's condition and/or to evaluate & treat vital organ system(s) failure or risk of failure. - Discharge Referral Referred to [facility] Med P.C.: No
== END 2018-06-23 13:33 | disposition home health service (06) | DRG 27 ==
LOC: JER 17:49 → JERBED 21:57 → JICU 06-20 16:31
PROVIDERS: ADMIT Internal Medicine; ATTEND Internal Medicine
PROC: 00C40ZZ Extirpation of Matter from Intracranial Subdural Space, Open Approach (ICD-10-PCS; principal; 2018-06-20 12:00)
DX: S06.5X0A Traumatic subdural hemorrhage without loss of consciousness, initial encounter (principal); I10 Essential (primary) hypertension; E11.9 Type 2 diabetes mellitus without complications; R11.2 Nausea with vomiting, unspecified; W22.8XXA Striking against or struck by other objects, initial encounter; Y93.89 Activity, other specified; Z79.84 Long term (current) use of oral hypoglycemic drugs; Y92.89 Other specified places as the place of occurrence of the external cause; Y99.8 Other external cause status; Z88.0 Allergy status to penicillin; E78.5 Hyperlipidemia, unspecified; D72.829 Elevated white blood cell count, unspecified
CPT/HCPCS: 36415; 70450-TC; 71045-TC-FY; 80048; 80053; 81003; 81015; 82962; 83735; 84100; 84484; 85025; 85027; 85610; 85730; 86850; 86900; 86901; 87040; 93005; 93010; 93306-TC; 94010; 94760; 97116-GP; 97161-GP; 99285-25; J0131; J1644

== ENCOUNTER 2021-04-05 11:31 | Emergency (ER) | payer OTHER ==
[2021-04-05 11:43] VITALS: BP 166/73; PULSE 75; TEMP 98.2; BMI 27.7
== END 2021-04-05 14:14 | disposition home or self-care (01) ==
LOC: JERFT 11:31
DX: M79.605 Pain in left leg (principal)
CPT/HCPCS: 93971-TC; 99284-25

== ENCOUNTER 2021-10-24 11:07 | Emergency (ER) | payer OTHER ==
[2021-10-24 11:32] VITALS: BP 153/93; PULSE 100; TEMP 99.1; BMI 26.2
[2021-10-25 08:06] LABS: SARS-CoV-2 NAA Not Detected (Not Detected)
== END 2021-10-24 14:25 | disposition home or self-care (01) ==
LOC: JER 11:07
DX: J02.9 Acute pharyngitis, unspecified (principal); R53.83 Other fatigue
CPT/HCPCS: 87804; 99283-25; C9803-CS; U0003; U0005

== ENCOUNTER 2023-01-04 14:04 | Inpatient (IN) | payer OTHER ==
[2023-01-04 14:32] VITALS: BMI 27.4
[2023-01-04 16:24] LABS: BASO % 0.5 % (0-2.0); EOS % 1.4 % (0-4.5); HEMATOCRIT 37.4 % (32.4-45.2); HEMOGLOBIN 12.8 GM/dL (10.7-15.3); LYMPH % 31.5 % (8-40); MCHC 34.1 g/dl (32.0-36.0); MEAN CELL VOLUME 90.7 fl (80-96); MEAN PLT VOLUME 9.9 fl (7.5-11.1); MONO % 8.2 % (3.8-10.2); NEUT % 58.4 % (42.8-82.8); PLATELET COUNT 275 10^3/uL (134-434); RBC 4.12 M/mm3 (3.60-5.2); RDW 12.5 % (11.6-15.6); WHITE BLOOD COUNT 10.5 K/mm3 (4.0-10.0)
[2023-01-04 16:43] LABS: ALBUMIN 3.6 g/dl (3.4-5.0); BLOOD UREA NITROGEN 38.3 mg/dL (7-18)
[2023-01-04 16:47] LABS: CREATININE 1.7 mg/dL (0.55-1.3)
[2023-01-04 16:48] LABS: BILIRUBIN,TOTAL 0.2 mg/dL (0.2-1); TOT PROT 7.7 g/dl (6.4-8.2)
[2023-01-04] MEDS: SODIUM CHLORIDE 0.9% 500 ML INFUS.BAG IV ONE ×2 (17:19→17:39)
[2023-01-04] MEDS ORDERED: hydrALAZINE HCL 20 MG/ML VIAL IVPUSH ONE ×2 (17:50→18:45)
[2023-01-04] MEDS ORDERED: hydrALAZINE HCL 20 MG/ML VIAL ONE (17:52)
[2023-01-04 18:07] LABS: EPI CELLS 1 /uL (0-25.1); HYALINE CASTS 0 /uL (0-3.1); URINE APPEARANCE CLEAR; URINE BACTERIA 35 /uL (0-1359); URINE BILIRUBIN NEGATIVE (NEGATIVE); URINE COLOR YELLOW; URINE GLUCOSE (UA) 2+ (NEGATIVE); URINE KETONE NEGATIVE (NEGATIVE); URINE LEUK ESTERASE NEGATIVE (NEGATIVE); URINE NITRITE NEGATIVE (NEGATIVE); URINE PROTEIN 3+ (NEGATIVE); URINE RBC 9 /uL (0-23.9); URINE UROBILINOGEN 0.2 mg/dL (0.2-1.0); URINE WBC 8 /uL (0-25.8)
[2023-01-04] MEDS ORDERED: LABETALOL HCL 5 MG/1 ML (100MG/20 ML VIAL) IVPUSH ONE (20:17)
[2023-01-04] MEDS ORDERED: LABETALOL HCL 20 MG/4 ML VIAL ONE (20:29)
[2023-01-05] MEDS ORDERED: hydrALAZINE HCL 10 MG TABLET PO ONE (04:13)
[2023-01-05] MEDS ORDERED: amLODIPine BESYLATE 10 MG TABLET (FP) PO SCH ×2 (04:14→10:00)
[2023-01-05] MEDS ORDERED: amLODIPine BESYLATE 10 MG TABLET (FP) PO STA (04:52)
[2023-01-05] MEDS: HEPARIN NA (PORCINE) 5,000 UNITS/ML 1ML VIAL SQ SCH ×3 (06:12→21:38)
[2023-01-05] MEDS: INSULIN SLIDING SCALE (NOVOLOG) 1 VIAL SQ SCH ×4 (06:12→21:42)
[2023-01-05 09:09] LABS: BASO % 0.4 % (0-2.0); EOS % 0.3 % (0-4.5); HEMATOCRIT 39.2 % (32.4-45.2); HEMOGLOBIN 13.5 GM/dL (10.7-15.3); LYMPH % 15.8 % (8-40); MCHC 34.3 g/dl (32.0-36.0); MEAN CELL VOLUME 90.3 fl (80-96); MEAN PLT VOLUME 10.3 fl (7.5-11.1); MONO % 6.8 % (3.8-10.2); NEUT % 76.7 % (42.8-82.8); PLATELET COUNT 320 10^3/uL (134-434); RBC 4.34 M/mm3 (3.60-5.2); RDW 12.8 % (11.6-15.6); WHITE BLOOD COUNT 13.9 K/mm3 (4.0-10.0)
[2023-01-05 09:52] LABS: CALCIUM 9.5 mg/dL (8.5-10.1)
[2023-01-05 09:53] LABS: ALBUMIN 3.7 g/dl (3.4-5.0); BLOOD UREA NITROGEN 31.6 mg/dL (7-18)
[2023-01-05 09:55] LABS: CREATININE 1.4 mg/dL (0.55-1.3)
[2023-01-05 09:57] LABS: PHOSPHOROUS 4.2 mg/dL (2.5-4.9); TOT PROT 7.7 g/dl (6.4-8.2)
[2023-01-05 09:58] LABS: BILIRUBIN,TOTAL 0.5 mg/dL (0.2-1)
[2023-01-05] MEDS: hydrALAZINE HCL 25 MG TABLET (FP) PO SCH (21:37)
[2023-01-06] MEDS: hydrALAZINE HCL 25 MG TABLET (FP) PO SCH ×3 (05:31→21:45)
[2023-01-06] MEDS: HEPARIN NA (PORCINE) 5,000 UNITS/ML 1ML VIAL SQ SCH ×3 (05:31→21:45)
[2023-01-06] MEDS: INSULIN SLIDING SCALE (NOVOLOG) 1 VIAL SQ SCH ×4 (06:30→21:51)
[2023-01-06 09:50] LABS: BASO % 0.8 % (0-2.0); EOS % 1.1 % (0-4.5); HEMATOCRIT 38.9 % (32.4-45.2); HEMOGLOBIN 13.4 GM/dL (10.7-15.3); LYMPH % 26.6 % (8-40); MCH 30.8 pg (25.7-33.7); MCHC 34.5 g/dl (32.0-36.0); MEAN CELL VOLUME 89.3 fl (80-96); MEAN PLT VOLUME 10.3 fl (7.5-11.1); MONO % 7.2 % (3.8-10.2); NEUT % 64.3 % (42.8-82.8); PLATELET COUNT 331 10^3/uL (134-434); RBC 4.35 M/mm3 (3.60-5.2); RDW 12.7 % (11.6-15.6); WHITE BLOOD COUNT 10.5 K/mm3 (4.0-10.0)
[2023-01-06 10:00] LABS: ALBUMIN 3.5 g/dl (3.4-5.0); BLOOD UREA NITROGEN 32.6 mg/dL (7-18); CALCIUM 9.6 mg/dL (8.5-10.1); MAGNESIUM 2.1 mg/dL (1.8-2.4)
[2023-01-06 10:02] LABS: CREATININE 1.8 mg/dL (0.55-1.3)
[2023-01-06 10:04] LABS: BILIRUBIN,TOTAL 0.5 mg/dL (0.2-1); TOT PROT 7.2 g/dl (6.4-8.2)
[2023-01-06] MEDS: amLODIPine BESYLATE 10 MG TABLET (FP) PO SCH (10:08)
[2023-01-06] MEDS ORDERED: SODIUM CHLORIDE 0.45% 1,000 ML IV SCH (11:00)
[2023-01-06] MEDS ORDERED: SODIUM CHLORIDE 1,000 ML IV SCH (12:15)
[2023-01-06] MEDS ORDERED: DEXTROSE 5%-NORMAL SALINE 1,000 ML IV SCH (13:00)
[2023-01-06] MEDS: SODIUM CHLORIDE 1,000 ML IV SCH (13:49)
[2023-01-07] MEDS: hydrALAZINE HCL 25 MG TABLET (FP) PO SCH ×2 (05:56→14:28)
[2023-01-07] MEDS: HEPARIN NA (PORCINE) 5,000 UNITS/ML 1ML VIAL SQ SCH ×3 (05:57→21:45)
[2023-01-07 08:49] LABS: BASO % 0.5 % (0-2.0); HEMATOCRIT 37.6 % (32.4-45.2); HEMOGLOBIN 12.9 GM/dL (10.7-15.3); LYMPH % 27.7 % (8-40); MCHC 34.4 g/dl (32.0-36.0); MEAN CELL VOLUME 89.9 fl (80-96); MEAN PLT VOLUME 9.5 fl (7.5-11.1); MONO % 9.1 % (3.8-10.2); NEUT % 60.7 % (42.8-82.8); PLATELET COUNT 312 10^3/uL (134-434); RBC 4.18 M/mm3 (3.60-5.2); RDW 12.7 % (11.6-15.6); WHITE BLOOD COUNT 8.7 K/mm3 (4.0-10.0)
[2023-01-07 09:16] LABS: ALBUMIN 3.4 g/dl (3.4-5.0); BLOOD UREA NITROGEN 23.7 mg/dL (7-18); MAGNESIUM 2.2 mg/dL (1.8-2.4)
[2023-01-07 09:18] LABS: CALCIUM 9.1 mg/dL (8.5-10.1)
[2023-01-07 09:19] LABS: PHOSPHOROUS 3.5 mg/dL (2.5-4.9); TOT PROT 6.9 g/dl (6.4-8.2)
[2023-01-07 09:23] LABS: CREATININE 1.7 mg/dL (0.55-1.3)
[2023-01-07] MEDS: amLODIPine BESYLATE 10 MG TABLET (FP) PO SCH (12:03)
[2023-01-07] MEDS: INSULIN SLIDING SCALE (NOVOLOG) 1 VIAL SQ SCH ×4 (12:24→21:45)
[2023-01-07] MEDS ORDERED: SODIUM CHLORIDE 0.45% 1,000 ML IV SCH (15:00)
[2023-01-07] MEDS: SODIUM CHLORIDE 1,000 ML IV SCH (18:40)
[2023-01-07] MEDS: hydrALAZINE HCL 50 MG TABLET (FP) PO SCH (21:45)
[2023-01-08] MEDS: HEPARIN NA (PORCINE) 5,000 UNITS/ML 1ML VIAL SQ SCH ×3 (06:30→21:35)
[2023-01-08] MEDS: INSULIN SLIDING SCALE (NOVOLOG) 1 VIAL SQ SCH ×4 (06:30→21:37)
[2023-01-08 07:29] LABS: HEMATOCRIT 37.4 % (32.4-45.2); HEMOGLOBIN 12.8 GM/dL (10.7-15.3); MCHC 34.3 g/dl (32.0-36.0); MEAN CELL VOLUME 90.3 fl (80-96); MEAN PLT VOLUME 10.7 fl (7.5-11.1); PLATELET COUNT 296 10^3/uL (134-434); RBC 4.14 M/mm3 (3.60-5.2); RDW 12.4 % (11.6-15.6); WHITE BLOOD COUNT 8.6 K/mm3 (4.0-10.0)
[2023-01-08 07:55] LABS: CALCIUM 9.1 mg/dL (8.5-10.1)
[2023-01-08 07:56] LABS: ALBUMIN 3.2 g/dl (3.4-5.0); BLOOD UREA NITROGEN 20.9 mg/dL (7-18)
[2023-01-08 07:59] LABS: CREATININE 1.5 mg/dL (0.55-1.3)
[2023-01-08 08:00] LABS: BILIRUBIN,TOTAL 0.5 mg/dL (0.2-1); TOT PROT 6.6 g/dl (6.4-8.2)
[2023-01-08] MEDS: amLODIPine BESYLATE 10 MG TABLET (FP) PO SCH (10:10)
[2023-01-08] MEDS: hydrALAZINE HCL 50 MG TABLET (FP) PO SCH ×2 (10:11→21:35)
[2023-01-08] MEDS ORDERED: ACETAMINOPHEN 325 MG TABLET (FP) PO PRN (20:11)
[2023-01-09] MEDS: HEPARIN NA (PORCINE) 5,000 UNITS/ML 1ML VIAL SQ SCH ×3 (06:05→21:41)
[2023-01-09] MEDS: INSULIN SLIDING SCALE (NOVOLOG) 1 VIAL SQ SCH ×4 (06:08→21:43)
[2023-01-09] MEDS ORDERED: INSULIN (LEVEMIR) 100 UNITS/ML UNITS SQ SCH ×2 (07:00→18:47)
[2023-01-09] MEDS: amLODIPine BESYLATE 10 MG TABLET (FP) PO SCH (09:17)
[2023-01-09] MEDS: hydrALAZINE HCL 50 MG TABLET (FP) PO SCH ×2 (09:17→21:41)
[2023-01-09 10:49] LABS: BLOOD UREA NITROGEN 21.5 mg/dL (7-18); CALCIUM 9.8 mg/dL (8.5-10.1)
[2023-01-09 10:53] LABS: CREATININE 1.8 mg/dL (0.55-1.3)
[2023-01-10] MEDS: HEPARIN NA (PORCINE) 5,000 UNITS/ML 1ML VIAL SQ SCH (06:31)
[2023-01-10] MEDS: INSULIN SLIDING SCALE (NOVOLOG) 1 VIAL SQ SCH (06:32)
[2023-01-10] MEDS: amLODIPine BESYLATE 10 MG TABLET (FP) PO SCH (10:51)
[2023-01-10] MEDS: hydrALAZINE HCL 50 MG TABLET (FP) PO SCH (10:51)
[2023-01-10 12:46] VITALS: BP 134/74; PULSE 63; RESP 24; TEMP 97.3
== END 2023-01-10 12:38 | disposition home health service (06) | DRG 884 ==
LOC: JER 14:04 → JERBED 18:21 → J4W 21:47
PROVIDERS: ADMIT Internal Medicine; ATTEND Internal Medicine
DX: F03.90 Unspecified dementia, unspecified severity, without behavioral disturbance, psychotic disturbance, mood disturbance, and anxiety (principal); N17.0 Acute kidney failure with tubular necrosis; G91.0 Communicating hydrocephalus; I67.4 Hypertensive encephalopathy; I16.0 Hypertensive urgency; E78.5 Hyperlipidemia, unspecified; E86.0 Dehydration; E04.1 Nontoxic single thyroid nodule; I12.9 Hypertensive chronic kidney disease with stage 1 through stage 4 chronic kidney disease, or unspecified chronic kidney disease; E11.22 Type 2 diabetes mellitus with diabetic chronic kidney disease; N18.9 Chronic kidney disease, unspecified; R26.81 Unsteadiness on feet; G93.89 Other specified disorders of brain; D72.829 Elevated white blood cell count, unspecified; M47.812 Spondylosis without myelopathy or radiculopathy, cervical region; R39.15 Urgency of urination; Z88.0 Allergy status to penicillin
CPT/HCPCS: 0241U-QW; 36415; 70450-TC; 70551-TC; 71045-TC-FY; 72125-TC; 76775-TC; 80048; 80053; 80061; 81003; 82550; 82570; 82962; 83036; 83735; 83935; 84100; 84300; 84436; 84439; 84443; 84484; 85025; 85027; 87086; 93005; 93010; 93306-TC; 93880-TC; 97116-GP; 97162-GP; 99285-25; J1644